=== PATIENT | female | born 1950 | race African-American/Black ===

== ENCOUNTER 2018-09-01 13:28 | Inpatient (IN) ==
[2018-09-01] MEDS ORDERED: NS 1,000 ML IV ONE (13:47)
[2018-09-01] MEDS ORDERED: NS 500 ML IV ONE (13:47)
[2018-09-01] MEDS ORDERED: VANCOMYCIN 1 GM/NS 1 GM/250 ML IVPB IV ONE (13:47)
[2018-09-01] MEDS ORDERED: MAXIPIME 2 GM in NS 100 ML IV ONE (13:47)
--- NOTE | 2018-09-01 14:08 | PROVIDER DOCUMENTATION ---
This chart was entered by Siri Osei Scribe, acting as scribe for Cesario Appiah MD. HPI-General Adult - General Chief Complaint: B/P Problems Stated Complaint: HYPOTENSION Time Seen by Provider: 09/01/18 13:35 Source: patient Allergies/Adverse Reactions: Patient Allergies Allergy/AdvReac Type Severity Reaction Status Date / Time atorvastatin calcium * Allergy Unknown Unknown Verified 07/07/18 15:13 [From Lipitor] iodine Allergy Unknown Unknown Verified 07/07/18 15:13 meloxicam [From Mobic] Allergy Unknown Unknown Verified 07/07/18 15:13 Penicillins Allergy Unknown Unknown Verified 07/07/18 15:13 rosuvastatin calcium * Allergy Unknown Unknown Verified 07/07/18 15:13 [From Crestor] Iodinated Contrast- Oral and Allergy Unknown Verified 07/07/18 15:13 IV Dye [IV Dye] Home Medications: Home Medication List Medication Instructions Recorded Confirmed Last Taken Type Folic Acid 1 mg PO HS 04/04/17 09/02/18 07/06/18 History Lactobacillus Rhamnosus GG 1 each PO BID capsule 08/22/17 07/07/18 07/06/18 Rx [Culturelle] Apixaban [Eliquis] 2.5 mg PO BID tablet 03/21/18 09/02/18 07/06/18 Rx Albuterol 2.5MG/Ipratrop 0.5MG 3 ml INH [id number] neb 05/23/18 09/02/18 07/06/18 Rx [Duoneb (A & A)] Amiodarone [Cordarone] 200 mg PO BID tablet 05/23/18 09/02/18 07/06/18 Rx Cilostazol [Pletal] 50 mg PO BID tablet 05/23/18 09/02/18 07/06/18 Rx Diltiazem [Cardizem] 30 mg PO BID tablet 05/23/18 09/02/18 07/06/18 Rx Docusate Sodium [Colace] 100 mg PO BID 09/02/18 09/02/18 Unknown History Hydrocodone/Acetaminophen [Elizabeth 1 ea PO Q8HR 09/02/18 09/02/18 Unknown History 7.5-325 Tablet] Magnesium Hydroxide [Milk of 30 ml PO HS 09/02/18 09/02/18 Unknown History Magnesia] Multivitamin with Minerals 20 ml PO DAILY 09/02/18 09/02/18 Unknown History [Eldertonic] Omeprazole 40 mg PO DAILY 09/02/18 09/02/18 Unknown History - History of Present Illness -Gen Adult Nature of Presenting Problems: 67 y/o female presents to the ED via EMS from [facility] with hypotension. Per EMS facility stated BP 76/43, patient refused dialysis yesterday, and family has refused Hospice care. On exam here BP is 101/58. The patient has a history of sepsis with septic shock, atrial fibrillation, B- tach, cardiac arrest, MS, and type II diabetes. Location of Pain/Injury: reports: generalized Onset/Duration: reports: unsure, gradual Timing: reports: still present Context/Activities at Onset: reports: light activity Modifying Factors: worse with: movement, palpation Review of Systems - Adult - REVIEW OF SYSTEMS - ADULT ROS:: limited per condition Constitutional: reports: no symptoms reported Eyes: reports: no symptoms reported Ears, Nose, Mouth & Throat: reports: no symptoms reported Cardiovascular: reports: other (hypotension). denies: edema, syncope Respiratory: denies: cough, hemoptysis, wheezing Gastrointestinal: denies: diarrhea, rectal bleeding, vomiting Genitourinary: reports: no symptoms reported Musculoskeletal: reports: no symptoms reported Integumentary: reports: no symptoms reported Neurological: reports: no symptoms reported Psychiatric: reports: no symptoms reported Endocrine: reports: no symptoms reported Hematologic/Lymphatic: reports: no symptoms reported Allergic/Immunologic: reports: no symptoms reported All Other Systems: Reviewed and Negative Past History - Adult - PAST MEDICAL HISTORY-ADULT Review of Records: reports: Old Records Reviewed, Nursing Assessment Review, Medications Reviewed Major Childhood Illnesses: reports: denies history Cardiovascular: reports: A-Fib, CHF, HTN, hyperlipidemia, [place] Respiratory: reports: denies history, COPD, sleep apnea Gastrointestinal: reports: denies history, cancer (colon), GERD Obstetrical/Gynecological: reports: denies history Genitourinary: reports: dialysis, kidney disease (renal failure) Musculoskeletal: reports: denies history, arthritis (osteo) Neurological: reports: denies history, CVA, Multiple Sclerosis Psychiatric: reports: depression Endocrine/Immune: reports: denies history, Diabetes, Sickle Cell disease (trait) , thyroid disorder Other Conditions: reports: denies history - PRIOR SURGERIES/PROCEDURES Surgical/Procedure History: reports: cholecystectomy, BTL, - IMMUNIZATION STATUS Childhood Immunizations: See Nurse Assessment Flu Vaccine: See Nurse Assessment - FAMILY HISTORY Family History: reviewed, not pertinent - SOCIAL HISTORY Smoking: non-smoker Substance Use: none/never Living Situation: [facility] Physical Exam-General - PHYSICAL EXAM-ADULT Initial Vital Signs Reviewed: Yes - CONSTITUTIONAL General Appearance: thin, other (cachectic, generally weak, fruity smell). negative: appears well - RESPIRATORY Respiratory: lungs clear, no accessory muscle use, decreased breath sounds. negative: rales, rhonchi - CARDIOVASCULAR Cardiovascular: regular rate, rhythm, no edema, no gallop - GASTROINTESTINAL (ABDOMEN) Abdominal Exam: soft. negative: guarding, rebound - MUSCULOSKELETAL Extremity: other (muscle wasting,) - SKIN Integumentary: decubitus (superficial left buttock, stage III-IV right buttock infected erythematous with drainage, large stageVI 4 cm. sacrum to the bone with infection present, gangrenous left heel), tenderness, warm Progress - PLAN OF CARE/RESULTS Result Diagrams: 09/01/18 14:09 09/01/18 14:09 - EKG 1 Time of EKG reading by physician:: 15:34 EKG Read and Signed by:: Cesario Appiah Rate: 90 Rhythm: NSR [place]: normal Comments: possible inferior infarct age undetermined - XRAY 1 XRAY Study: Chest ( EXAM: CHEST-1 VIEW - 09/01/2018 HISTORY: HYPOTENSION TECHNIQUE: Portable chest COMPARISON: 07/23/2017 FINDINGS: Heart size appears borderline enlarged. There is mild atelectasis or infiltrate at the left base. There is slight prominence of interstitial markings on the left. There is no pleural effusion or pneumothorax identified. Central venous catheter remains in place. IMPRESSION: Atelectasis or infiltrate at right base. Electronically signed by Cruz Gerard 09/01/2018 2:20 PM) - CONSULTS/PCP/HOSPITALIST Notification #1 *Consult/PCP/Hospitalist*: Dr. Arce,covering for Dr. Crum Time Discussed: 17:55 Consult Disposition: Admit Departure - Departure Date of Disposition Decision: 09/01/18 Time of Disposition Decision: 20:29 DIAGNOSIS: Pneumonia Qualifiers: Pneumonia type: due to unspecified organism Laterality: right Lung location: lower lobe of lung Qualified Code(s): J18.1 - Lobar pneumonia, unspecified organism Urinary tract infection Qualifiers: Urinary tract infection type: site unspecified Hematuria presence: with hematuria Qualified Code(s): N39.0 - Urinary tract infection, site not specified Leukocytosis Qualifiers: Leukocytosis type: unspecified Qualified Code(s): D72.829 - Elevated white blood cell count, unspecified Renal failure Qualifiers: Renal failure chronicity: acute on chronic Acute renal failure type: unspecified Chronic kidney disease stage: stage 4 (severe) Qualified Code(s): N17.9 - Acute kidney failure, unspecified Sepsis Qualifiers: Sepsis type: sepsis due to unspecified organism Qualified Code(s): A41.9 - Sepsis, unspecified organism Disposition: ADMITTED INPATIENT 09 Certified Medical Emergency: Emergent Condition: Serious - Critical Care Note This patient required my direct & personal management of CC.: Yes Total Time (mins): 31 Critical Care Statement: This patient required my direct personal management to treat or rule out processes, the absence of which, could potentiallly result in sudden, clinically significant life or limb threatening deterioration. Attestation - Physician/ JENNIFER Attestation Patient care was provided by Advanced Practice Provider:: No The physician spent face to face time with patient:: Yes Advanced Practice Provider documentation review:: Supervising physician onsite and consulted in the evaluation and care of this patient. The physician did have a face to face encounter with the patient. This chart was documented by the indicated scribe, (Siri Osei Scribe) and accurately reflects the services I performed and decisions made by me, Cesario Appiah MD, as attested by the provider's signature.
--- NOTE | 2018-09-01 14:22 | Diag Imaging Result Doc PS360 ---
EXAM: CHEST-1 VIEW - 09/01/2018 HISTORY: HYPOTENSION TECHNIQUE: Portable chest COMPARISON: 07/23/2017 FINDINGS: Heart size appears borderline enlarged. There is mild atelectasis or infiltrate at the left base. There is slight prominence of interstitial markings on the left. There is no pleural effusion or pneumothorax identified. Central venous catheter remains in place. IMPRESSION: Atelectasis or infiltrate at right base. Electronically signed by Cruz Gerard 09/01/2018 2:20 PM
[2018-09-01 14:31] LABS: BASO# 0.01 X1000 (0.0-0.2); EOS% 0.3 % (0.0-10.0); HEMATOCRIT 30.8 % (37.0-47.0); HEMOGLOBIN 10.6 g/dL (12.0-16.0); IMM GRAN# 0.12 X1000 (0.0-0.04); IMM GRAN% 0.4 % (0.0-0.5); LYMPH# 2.85 X1000 (1.2-3.4); MCH 25.5 PG (27-31); MCHC 34.4 g/dL (33-37); MONO# 1.87 X1000 (0.11-0.59); MONO% 5.9 % (1.7-9.3); MPV 9.6 FL (7.4-10.4); NEUT% 84.4 % (42.2-75.2); PLT 644 X1000 (130-400); RBC 4.16 XMIL (4.2-5.4); RDW 19.1 % (11.5-14.5); WBC 31.75 X1000 (4.8-10.8)
[2018-09-01 14:37] LABS: INR 1.7; PROTIME 21.2 Seconds (11.0-16.0)
[2018-09-01 14:38] LABS: PTT 52.4 Seconds (22.3-41.8)
[2018-09-01 14:46] LABS: ALB/GLOB RATIO 0.7; ALBUMIN 2.3 g/dL (3.5-5.0); CREATININE 3.1 mg/dL (0.5-0.9); TOTAL BILIRUBIN 0.54 mg/dL (0.20-1.00); TOTAL PROTEIN 5.7 g/dL (6.3-8.3)
[2018-09-01 14:55] LABS: URINE SOURCE CATH
[2018-09-01 15:14] LABS: ANISOCYTOSIS OCCASIONAL; EOS 1 % (1-10); HYPOCHROM 1+; LYMPHS 14 % (21-51); MICROCYTOSIS 1+; MONO 5 % (1-9); NRBC 2 % (0-0); POIKILOCYTOSIS 3+; SEGS 79 % (42-75); TARGET CELLS 3+
[2018-09-01 15:15] LABS: BILIRUBIN URINE NEGATIVE (NEGATIVE); BLOOD URINE MODERATE (NEGATIVE); COLOR ORANGE; GLUCOSE URINE NEGATIVE (NEGATIVE); KETONE URINE NEGATIVE (NEGATIVE); LEUKOCYTES URINE LARGE (NEGATIVE); NITRITE URINE NEGATIVE (NEGATIVE); PH URINE 5.5; PROTEIN URINE 300 mg/dL (NEGATIVE); SP GRAVITY URINE 1.019; TURBIDITY URINE TURBID (CLEAR); UR EPITHELIAL CELLS >10 /HPF (<10); URINE BACTERIA NEGATIVE /HPF; URINE RBC TNTC /HPF (<10); URINE WBC TNTC /HPF (<10); UROBILINOGEN URINE NORMAL (NORMAL)
[2018-09-01 15:19] LABS: URINE CASTS NONE SEEN; URINE CRYSTALS NONE SEEN; URINE SMALL ROUND CELLS NONE SEEN; URINE YEAST PRESENT
[2018-09-01] MEDS ORDERED: NS 1,000 ML ONE (16:27)
[2018-09-01] MEDS ORDERED: LEVAQUIN 750 MG/D5W 750 MG/150 ML IVPB IV ONE (17:44)
[2018-09-01] MEDS ORDERED: ZOFRAN IV PRN ×2 (18:55→20:34)
--- NOTE | 2018-09-01 19:24 | HISTORY AND PHYSICAL ---
CHIEF COMPLAINT: Extreme weakness and shortness of breath. PRESENT ILLNESS: This is one of several [facility] admissions for this 67-year-old black female who presented to the emergency room with shortness of breath and weakness. Chest x-ray shows right lower lobe infiltrate suggestive of pneumonia. She has a stage III to IV sacral decubitus ulcer and decubitus ulcers of heels. White blood count was elevated at 31,000. She has endstage renal disease and receives dialysis 3 times weekly. She has been at [facility] for a couple of months. 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 She has had some recent nausea, but no vomiting and no diarrhea. Appetite has been poor. Blood pressure was a little low at 106/45. She is admitted for further evaluation and treatment. Urine and blood cultures were obtained. Urinalysis revealed ctf-[id number]-to-count WBCs and RBCs. She has multiple medical problems and has been bedbound due to a stroke from underlying atrial fibrillation. She developed pressure ulcers subsequently. There is no history of recent surgery. She has a Vas-Cath on the left side. ALLERGIES: Atorvastatin, iodine, meloxicam, penicillin and others. HOME MEDICATIONS: Albuterol and Atrovent q.i.d.; amiodarone 200 mg b.i.d.; Eliquis 2.5 mg b.i.d.; Pletal 50 mg b.i.d.; diltiazem 30 mg b.i.d.; folic acid 1 mg at bedtime; lactobacillus 1 b.i.d.; omeprazole 20 mg daily. SOCIAL HISTORY: She is a single lady and has several children who live in other states including [place]. There is no history of recent smoking or alcohol usage. PHYSICAL EXAMINATION: GENERAL: Debilitated black female with nasal oxygen and O2 saturation 100%. Bedridden black female with generalized weakness. VITAL SIGNS: Temperature 99.8 degrees, heart rate 93, respirations 18, blood pressure 140/60. Weight 136 pounds. SKIN: She has a large sacral decubitus ulcer, and decubitus ulcers on heels. LUNGS: There are increased upper airway sounds to auscultation of the lungs. No rales are audible. ABDOMEN: Soft with no mass, tenderness or organomegaly. HEART: Regular in rate and rhythm with no murmur or gallop. EXTREMITIES: No edema or cyanosis. RECTAL: Deferred. GENITALIA: Deferred. IMPRESSION: 1. Endstage renal disease. 2. Early sepsis. 3. Right lower lobe pneumonia. 4. Cystitis. 5. Decubitus ulcers, the worst being in the sacral area. PLAN: Intravenous levofloxacin, cefepime and vancomycin. Cultures are pending. cc: Edwardo Arce MD
[2018-09-01] MEDS ORDERED: VANCOMYCIN IV PER PHARMACY MISC SCH (20:58)
[2018-09-01] MEDS ORDERED: ULTRAM PO SCH (21:00)
[2018-09-01] MEDS ORDERED: PLETAL PO SCH (21:00)
[2018-09-01] MEDS ORDERED: ELIQUIS PO SCH (21:00)
[2018-09-01] MEDS ORDERED: FOLIC ACID PO SCH (21:00)
[2018-09-01] MEDS ORDERED: DUONEB (A & A) INH SCH (21:00)
[2018-09-01] MEDS ORDERED: CORDARONE PO SCH (21:00)
[2018-09-01] MEDS: DUONEB (A & A) INH SCH (21:00)
[2018-09-02] MEDS: FOLIC ACID PO SCH ×2 (01:38→21:07)
[2018-09-02] MEDS: DUONEB (A & A) INH SCH ×4 (04:10→20:12)
[2018-09-02] MEDS: PRILOSEC PO SCH ×2 (05:49→10:01)
[2018-09-02] MEDS: PLETAL PO SCH ×3 (05:49→21:07)
[2018-09-02] MEDS: ELIQUIS PO SCH ×3 (05:50→21:07)
[2018-09-02] MEDS: ULTRAM PO SCH ×3 (05:50→18:23)
[2018-09-02] MEDS: MAXIPIME 1 GM in NS 50 ML IV SCH ×2 (05:50→16:15)
[2018-09-02] MEDS: CORDARONE PO SCH ×3 (05:50→21:07)
[2018-09-02] MEDS ORDERED: PRILOSEC PO SCH (07:00)
[2018-09-02] MEDS ORDERED: VANCOMYCIN 1 GM/NS 1 GM/250 ML IVPB IV SCH (09:30)
[2018-09-02] MEDS ORDERED: DIFLUCAN 100 MG/NS 100 MG/50 ML IVPB IV SCH (14:00)
[2018-09-02] MEDS ORDERED: LEVAQUIN 250 MG/D5W 250 MG/50 ML IVPB IV SCH (18:30)
[2018-09-03] MEDS: ULTRAM PO SCH ×2 (00:07→15:14)
[2018-09-03] MEDS: NORCO-7.5 PO PRN (02:02)
[2018-09-03] MEDS: DUONEB (A & A) INH SCH ×4 (03:50→20:29)
[2018-09-03] MEDS: MAXIPIME 1 GM in NS 50 ML IV SCH (04:24)
[2018-09-03] MEDS ORDERED: TIGHT: 0.2 ML/HR FOR DIALYSIS MISC PRN (06:23)
[2018-09-03] MEDS ORDERED: HEPARIN IV PRN (06:23)
[2018-09-03] MEDS ORDERED: NS 2,000 ML MISC PRN (06:23)
[2018-09-03] MEDS: PRILOSEC PO SCH (06:58)
--- NOTE | 2018-09-03 06:59 | PROGRESS NOTE ---
DATE: 09/03/2018 SUBJECTIVE: Ms. Mcfarlane is doing fair. The patient is not giving a good history. No high-grade fever or chills. The patient had low blood pressure at the assisted. The patient had an unstageable decubitus on the sacral area. She had end-stage renal disease; at times, refusing dialysis, losing weight. Oral intake is poor. We are encouraging oral feeding. Urine grew piyush or yeast. The patient does have significant pain. PHYSICAL EXAMINATION: Vital Signs: Noted. Neck: Supple. No JVD. Lungs: Decreased air entry at both the bases. CVS: S1 and S2 heard. A 2/6 systolic murmur at the apex. Abdomen: Soft. No distention. Bowel sounds present. PNEUMATIC TESTER: Alert, awake, and uncooperative for a detailed examination. LABORATORY STUDIES: Admission labs revealed leukocytosis and anemia of chronic disease. PT/INR 1.7, PTT was 52.4. BUN 31, creatinine 3.1. Urine did reveal too numerous to count WBCs and large leukocytes, and there was yeast present. Culture also grew yeast. ASSESSMENT AND PLAN: The patient is admitted with low blood pressure. The patient had a stage IV decubitus on the sacrum. We requested wound care nurse to evaluate the patient. I am going to order air mattress, change positions frequently. We will encourage Ensure and nutritional supplement. The patient is on broad-spectrum antibiotics. I am going to get an infectious disease consult and a surgical consult, a nephrology consult for dialysis and management of renal failure. Overall prognosis is poor. I talked to the son and they want to consider full treatment. Her other problems include paroxysmal atrial fibrillation, atelectasis, pneumonia, and peripheral vascular disease. The patient also has a pressure sore on her feet and a history of multiple sclerosis. cc: Ravin Torres MD
[2018-09-03] MEDS ORDERED: MAXIPIME 1 GM in NS 50 ML IV SCH (07:45)
--- NOTE | 2018-09-03 08:42 | INFECTIOUS DISEASE CONSULT REP ---
DATE: 09/03/2018 CONCLUSION: The patient is admitted to the hospital with a buttock large infected decubitus ulcer. She also has pressure wounds on both heels. She also has funguria. Finally, she on chest x-ray has a right lower lobe pneumonia and/or atelectasis. The patient is unable to provide a history and no family member is present. The information I obtained was from information in the computer. RECOMMENDATIONS: I agree with treating the patient with cefepime. I have changed the dose to 1 g IV after each dialysis. I have discontinued fluconazole because I think the patient's funguria is asymptomatic and therefore does not require treatment. The patient has a gram- negative christian bacteremia. This could have originated from the patient's large buttock decubitus ulcer with a partial eschar. PRESENT ILLNESS: The patient is unable provide a history. No family member is present. The patient lives in a long term and was sent over to the hospital because of weakness and shortness of breath. She sent to [facility] because of extreme weakness and shortness of breath. Her laboratory studies show a CBC with a white count of 31,750, hemoglobin 10.6, and platelet count 644,000. Creatinine is 3.1. GFR is 18. Both blood cultures are growing gram-negative rods. Urine is growing yeast. Chest x-ray has right lower lobe pneumonia/atelectasis. The patient's buttock Gram stain shows no bacteria. A culture from the buttock decubitus ulcer is pending. The patient's urinalysis shows white cells but no bacteria. Blood cultures are growing gram-negative christian and urine is growing yeast. The patient's liver function tests were normal except for an alkaline phosphatase of 160. Creatinine is 3.1. GFR is 18. PAST MEDICAL HISTORY: The patient has a history of end-stage renal disease. She is on hemodialysis. She had a stroke with resulting left hemiparesis. She also has deconditioning, dysphagia, a hiatal hernia, gastritis, multiple pressure ulcers including both heels and on the buttock, and atrial fibrillation, although when I listened to the patient just now, the heart rate appeared regular. The patient also has peripheral vascular disease and electrolyte abnormalities. The patient also has coronary artery disease, pulmonary hypertension, multiple sclerosis, diabetes mellitus, recurrent pneumonia, and urine cultures. The patient also has peripheral neuropathy and a history of colon cancer. She also has hypertension. PAST SURGICAL HISTORY: She has had placement of dialysis catheters and also had them removed. The patient has a tubal ligation and section. PHYSICAL EXAMINATION: Vital Signs: The temperature is 98.6, pulse 98, respirations 16, blood pressure 104/54. General: This is a chronically ill-appearing, elderly female. She is in no acute distress. Head, Eyes, Ears, Nose, and Throat: No drainage noted from the nose or ears. She did not track with her eyes. Neck: There was no pain when she moved her neck. Lungs: Clear to auscultation. Cardiovascular: Heart rate is regular. Abdomen: Soft and nontender. Thorax: The patient has a dialysis catheter in the left chest. The site is not swollen or draining. Integument: The patient, in the buttock and sacral area, has a large infected ulcer that has a partial eschar covering the opening. I did not palpate bone directly. Both of the patient's heels had dark areas but no actual ulcer or drainage. Neurologic: The patient did not track with her eyes. She did not follow requests to move her extremities. There was no tremor. SOCIAL HISTORY: The patient lives in a long term. The patient is single. She does have children who are in other states. She has no history of cigarette smoking or alcohol abuse. ALLERGIES: She has drug allergies to atorvastatin, iodine, meloxicam, and penicillin. HOME MEDICATIONS: The home medications include albuterol and Atrovent, amiodarone, Eliquis, Pletal, diltiazem, folic acid, lactobacillus, and omeprazole. Thank you for the consult. cc: MD Ravin Lin MD MTDD
[2018-09-03 10:58] LABS: BASO# 0.02 X1000 (0.0-0.2); BASO% 0.1 % (0.0-0.8); EOS# 0.01 X1000 (0.0-0.7); HEMOGLOBIN 9.3 g/dL (12.0-16.0); IMM GRAN# 0.23 X1000 (0.0-0.04); IMM GRAN% 0.6 % (0.0-0.5); LYMPH# 0.81 X1000 (1.2-3.4); LYMPH% 2.2 % (20.5-51.1); MCH 25.7 PG (27-31); MCHC 35.8 g/dL (33-37); MCV 71.8 FL (81-99); MONO% 4.3 % (1.7-9.3); MPV 9.4 FL (7.4-10.4); NEUT# 34.79 X1000 (1.4-6.5); NEUT% 92.8 % (42.2-75.2); PLT 552 X1000 (130-400); RBC 3.62 XMIL (4.2-5.4); RDW 19.2 % (11.5-14.5); WBC 37.46 X1000 (4.8-10.8)
[2018-09-03 11:19] LABS: ALB/GLOB RATIO 0.6; ALBUMIN 2.1 g/dL (3.5-5.0); CALCIUM 7.9 mg/dL (8.8-10.2); MAGNESIUM 1.6 mg/dL (1.5-2.7); POTASSIUM 3.2 mmol/L (3.5-5.1); TOTAL BILIRUBIN 0.49 mg/dL (0.20-1.00); TOTAL PROTEIN 5.6 g/dL (6.3-8.3)
--- NOTE | 2018-09-03 11:24 | NEPHROLOGY CONSULTATION ---
DATE: 09/03/2018 REASON FOR ADMISSION: Severe weakness with shortness of breath and pain. REASON FOR CONSULT: End-stage renal disease, for assistance with medical management. CONSULTING PHYSICIAN: Dr. Ravin Torres. HISTORY OF PRESENT ILLNESS: Ms. Mcfarlane is a 67-year-old female who is known to our outpatient services for hemodialysis on Monday, Monday, Monday at the [facility]. The patient has had multiple admissions in the last year to both [facility] and [facility]. At this time, she is a long-term resident at [facility]. She was admitted earlier July with diagnosis of end-stage renal disease, chronic anemia, CVA on the right with left hemiparesis, deconditioning. She also had Pseudomonas infection on wound ulcers. It is reported on her admission sheet that she has had reported recent incidence of nausea and vomiting, poor appetite, low blood pressure. Due to these findings, she had blood cultures drawn. These currently indicate gram negative rods with positive yeast in her urine. Her chest x-ray on admission showed atelectasis or infiltrates to the right lower lobe with Dr. Mccartney consulted. The patient is nonverbal today. She does not give a good past medical history. PAST MEDICAL HISTORY: In our previous notes and information in our office indicates that in she has already had end-stage renal disease. She is currently on hemodialysis on Monday, Monday, Monday, anemia of chronic disease, pneumonia, insulin-dependent diabetes mellitus type 1, coronary artery disease, pulmonary hypertension, CVA, peripheral vascular disease, osteodystrophy of chronic disease. PAST SURGICAL HISTORY: Previous dialysis tunneled catheters, port placed in June 2017. SOCIAL HISTORY: She is at [facility]. Denies tobacco, alcohol or illicit drug use. FAMILY HISTORY: Noncontributory to end-stage renal disease. ALLERGIES: Currently listed as atorvastatin, iodine, meloxicam, penicillins. HOME MEDICATIONS: Have yet to be reconciled. REVIEW OF SYSTEMS: Unable to obtain per patient. Best obtained from previous charts in our office and previous admissions. VITAL SIGNS: Her most recent vital signs: Temperature 98.6 degrees, blood pressure 104/54, heart rate 98, respirations are 20. She is on 2 L nasal cannula. Last recorded saturation is 97%. She has had 200 in, she has only had 60 mL out. LABORATORY DATA: Last obtained, her sodium is 139, potassium 4, chloride 102, CO2 21, BUN 31, creatinine 3.1, glucose 92. White count 31.75, hemoglobin 10.6, hematocrit 30.8 with a platelet count of 644,000. The patient's last potassium was 4. She has labs ordered for this a.m. These have not resulted. PHYSICAL EXAMINATION: General: This is a 67-year-old female. She appears older than her stated age. She remains nonverbal though she is awake. Skin: Warm and dry. Her posterior back and buttocks have not been inspected. HEENT: Normocephalic, atraumatic. Conjunctiva is pale. She has SHAUN. Mucous membranes are dry. Neck: Supple. Trachea midline. She has no evidence of JVD. Cardiovascular: She has regular rate and rhythm. Lungs: She has occasional scattered rhonchi with deep inspiratory effort. She remains on O2. Abdomen: Soft, nontender. Positive bowel sounds noted. Genitourinary: Not inspected. Minimal void with dialysis assist. Extremities: With no edema. Neurological: As mentioned above. ASSESSMENT AND PLAN: 1. Chronic kidney disease stage 5D. The patient is due for her routine dialysis treatment today. We will place her on a 2 K bath. She is to dialyze for 3.5 hours. We will attempt to challenge the patient's outpatient dry weight. 2. Electrolytes and acid-base balance. These are acceptable with correction on dialysis. 3. Anemia. This is acceptable. 4. Leukocytosis. The patient has a white count of 31.75. Dr. Mccartney has been consulted. She does have positive blood cultures. She had been dosed with vancomycin on her initial admission. I would like to thank you for allowing us to follow with this patient. Dictated by SARAH Dick for Gagan Conde MD Face to face encounter, data reviewed, discussed with Keshav Metzger on 09/03/18. I agree with the above assessment and plan of care. cc: SARAH Dick MD Bharat K. Vakharia, MD MTDD
[2018-09-03 11:47] LABS: LARGE PLATELETS OCCASIONAL; LYMPHS 1 % (21-51); MONO 4 % (1-9); SEGS 95 % (42-75)
[2018-09-03 11:48] LABS: ANISOCYTOSIS 1+; MICROCYTOSIS 1+; TARGET CELLS 3+
--- NOTE | 2018-09-03 12:28 | GENERAL SURGERY CONSULTATION ---
DATE: 09/03/2018 REQUESTING PHYSICIAN: Dr. Torres. REASON FOR CONSULTATION: Sacral wound. HISTORY OF PRESENT ILLNESS: A 67-year-old female, well known to my group, who has had multiple medical comorbidities, presenting now with weakness and shortness of breath. She has baseline end- stage renal disease. She had been at [facility]. She has developed a sacral pressure ulcer. I was asked to weigh an opinion. The patient is not very responsive, was getting dialysis when we examined her. PAST MEDICAL HISTORY: Includes 1. End-stage renal disease. 2. Anemia of chronic disease. 3. History of pneumonia. 4. Insulin-dependent diabetes mellitus type 1. 5. Coronary artery disease. 6. Hypertension. 7. Pulmonary hypertension. 8. CVA. 9. Peripheral vascular disease. PAST SURGICAL HISTORY: Multiple previous tunneled catheter placement. SOCIAL HISTORY: Lives at [facility]. FAMILY HISTORY: Noncontributory. ALLERGIES: Reviewed. HOME MEDICATIONS: Reviewed. REVIEW OF SYSTEMS: Difficult to obtain secondary to the patient's mental status. PHYSICAL EXAMINATION: Vital Signs: The patient is currently afebrile. Her vital signs are stable. General: No acute distress. female looks older than stated age. HEENT: Normocephalic, atraumatic. Pupils equal, round, reactive to light. Mucous membranes moist. Oropharynx benign. Neck: Supple. Trachea midline. Cardiovascular: Regular rate and rhythm. Lungs: Grossly clear. Chest wall with catheter in place, currently undergoing dialysis. Abdomen: Soft, nontender, nondistended. Sacral wound, significant large pressure ulcer with some necrotic tissue and slough. Extremities: No edema. Neurologic: The patient is nonverbal at this time. Skin: Sacral wound as noted above. LABORATORY DATA: White blood cell count 37, platelet count 552,000, hematocrit 26. ASSESSMENT/PLAN: A 67-year-old female with multiple medical comorbidities now with a sacral pressure ulcer. 1. Multiple medical comorbidities, currently being managed by the hospitalist and Dr. Torres. 2. Sacral pressure ulcer. At this time, continue with offloading. We will change wound care instructions to have Jacob and Santyl. We will try to re-examine there in a week and maybe try to do some bedside debridement. I am unsure if the patient would tolerate any significant debridement in the operating room. We will continue to follow. cc: MD Ravin Canada MD
[2018-09-03] MEDS: CORDARONE PO SCH (15:10)
[2018-09-03] MEDS: ELIQUIS PO SCH (15:12)
[2018-09-03 15:13] LABS: URINE SOURCE CATH
[2018-09-03] MEDS: SANTYL OINT TOP SCH (15:13)
[2018-09-03] MEDS: PLETAL PO SCH (15:14)
[2018-09-03 15:32] LABS: BILIRUBIN URINE NEGATIVE (NEGATIVE); BLOOD URINE MODERATE (NEGATIVE); COLOR BROWN; GLUCOSE URINE NEGATIVE (NEGATIVE); KETONE URINE NEGATIVE (NEGATIVE); LEUKOCYTES URINE LARGE (NEGATIVE); NITRITE URINE NEGATIVE (NEGATIVE); PROTEIN URINE 200 mg/dL (NEGATIVE); SP GRAVITY URINE 1.019; TURBIDITY URINE TURBID (CLEAR); UR EPITHELIAL CELLS >10 /HPF (<10); URINE BACTERIA NEGATIVE /HPF; URINE RBC TNTC /HPF (<10); URINE WBC TNTC /HPF (<10); UROBILINOGEN URINE NORMAL (NORMAL)
[2018-09-03 15:44] LABS: URINE CASTS NONE SEEN; URINE CRYSTALS NONE SEEN; URINE SMALL ROUND CELLS TRANS PRESENT; URINE YEAST PRESENT
[2018-09-03] MEDS ORDERED: VANCOMYCIN 1 GM/NS 1 GM/250 ML IVPB IV ONE (17:00)
[2018-09-03] MEDS ORDERED: D50W SYRINGE IV ONE ×2 (17:21→18:38)
[2018-09-03] MEDS: CLINIMIX E 4.25%-5% SOLUTION 1,000 ML IV SCH (18:44)
--- NOTE | 2018-09-03 18:52 | PROGRESS NOTE ---
DATE: 09/03/2018 SUBJECTIVE: Ms. Mcfarlane is doing fair. The patient had tachycardia and low-grade fever. Her blood cultures were positive for gram-negative rods. Also, her wound culture shows the patient is on IV antibiotics. I appreciate ID's help. Also, Surgical and Nephrology help managing patient. Her blood sugar at times staying low. I am going to start the patient on Clinimix for nutritional support. OBJECTIVE: Vital Signs: As noted. Neck: Supple. No JVD. Lungs: Decreased air entry at both bases. CVS: S1 and S2 heard. A 2-3/6 systolic murmur at the apex. Abdomen: Soft, globular. Bowel sounds present. HAND PLUG SHAPER: Alert and awake answering questions fair. PLAN: Plan is to watch her for hypoglycemia. Clinimix for nutritional support. Continue IV antibiotics. Dialysis. cc: Ravin Torres MD
[2018-09-04] MEDS: CORDARONE PO SCH ×3 (03:04→22:30)
[2018-09-04] MEDS: ULTRAM PO SCH ×3 (03:04→20:30)
[2018-09-04] MEDS: ELIQUIS PO SCH ×3 (03:05→20:30)
[2018-09-04] MEDS: PLETAL PO SCH ×3 (03:06→20:30)
[2018-09-04] MEDS: FOLIC ACID PO SCH ×2 (03:06→20:30)
[2018-09-04] MEDS: DUONEB (A & A) INH SCH ×4 (03:50→20:22)
--- NOTE | 2018-09-04 07:26 | PROGRESS NOTE ---
DATE: 09/04/2018 SUBJECTIVE: Ms. Mcfarlane is more alert and awake today answering question fair. Denied any high- grade fever or chills. Her vital signs are noted. Blood pressure is satisfactory. Oral intake is poor. No nausea or vomiting. OBJECTIVE: Vital Signs: As noted. Neck: Supple. No JVD. Lungs: Decreased air entry at both bases. CVS: S1 and S2 heard. A 2-3/6 systolic murmur at the apex. Abdomen: Soft. Mild epigastric tenderness. No guarding or rigidity. Extremities: No cyanosis or clubbing. No acute DVT. COOKING TEACHER: Alert, awake and cooperative for detailed exam. CONSIDERATION: The patient does have decubitus on her foot and also on the sacrum. Surgical evaluation noted. Also, I appreciate ID and Nephrology's help. I started patient on Clinimix for nutritional support. The patient is on IV antibiotics. Consideration for sepsis and decubitus ulcer. End-stage renal disease. Epigastric pain. I am going to get abdominal x-ray. Paroxysmal atrial fibrillation. Overall prognosis is poor. Discussed with surgeon and ID specialist. We will continue current treatment. Close observation. cc: Ravin Torres MD
[2018-09-04 08:13] LABS: ALBUMIN 1.8 g/dL (3.5-5.0); CREATININE 1.5 mg/dL (0.5-0.9); PHOSPHORUS 2.2 mg/dL (2.7-4.5); POTASSIUM 3.3 mmol/L (3.5-5.1)
--- NOTE | 2018-09-04 10:09 | Diag Imaging Result Doc PS360 ---
EXAM: ABDOMEN FLAT/UPRIGHT HISTORY: pain TECHNIQUE: Flat and upright, two views COMPARISON: 07/17/2018 FINDINGS: No free air beneath the diaphragm. There is stool throughout the colon with air in the sigmoid colon. No organomegaly. The gallbladder has been removed. IMPRESSION: Constipation Electronically signed by Yosvany Stock 09/04/2018 10:07 AM
[2018-09-04] MEDS: PROTONIX IV SCH (11:35)
[2018-09-04] MEDS: SODIUM CHLORIDE 0.9% INJ SCH (11:35)
--- NOTE | 2018-09-04 12:04 | NEPHROLOGY PROGRESS NOTE ---
DATE: 09/04/2018 TIME SEEN: 0640. SUBJECTIVE: Ms. Mcfarlane is resting quietly in bed. She opens her eyes to verbal stimuli. She remains nonverbal, though she shakes her head yes and no. OBJECTIVE: Vital Signs: Her most recent vital signs are temperature 97 degrees, blood pressure 117/55, heart rate 96, respirations 16. She is on 2 L nasal cannula. Last recorded saturation was 95%. She has had 250 in. She has had 1122 out with 922 removed off on dialysis yesterday. Labs: Sodium is 143, potassium 3.3, chloride is 107, CO2 25, BUN 14, creatinine 1.5, glucose 144, her anion gap is 11, her calcium is 8, her phosphorus 2.2, albumin is 1.8. Previous hemoglobin was 9.3 on the . Her blood cultures have shown Providencia stuartii E. coli. Physical Examination: General: This is a 67-year-old, female resting quietly in bed. She appears chronically ill. No acute distress. Skin is warm and dry. HEENT: Normocephalic, atraumatic. Conjunctivae are pale. She has SHAUN. Mucous membranes are dry. Neck: Supple. Trachea midline. No JVD. Cardiovascular: She is regular rate and rhythm. She does have a systolic murmur this a.m. Lungs: Clear to auscultation anteriorly. Equal excursion, on O2. Abdomen: Soft, nontender. Positive bowel sounds. Genitourinary: Not inspected. Minimal void with dialysis assist. Extremities: Have trace edema. No clubbing or cyanosis. Integumentary: The patient's backside and coccyx have not been inspected. This is being cared for by the wound nurse. Neurological: She is as mentioned above. ASSESSMENT AND PLAN: 1. Chronic kidney disease stage 5D. The patient is due for her routine dialysis treatment in the morning. No indications for intervention today. 2. Electrolytes and acid-base balance, with correction on dialysis. 3. Anemia. This remains low but stable. 4. Early sepsis with a decubitus to her coccyx and positive blood cultures. This is being followed by Dr. Mccartney. 5. Malnutrition. Albumin remains at 1.8. She is currently on Clinimix. Due to the need for protein and nutrition, we will go ahead and stop the Clinimix and plan for Intra-dialysis parenteral nutrition to be given while on dialysis to increase her protein intake and calories. I would like to thank you for allowing us to follow with this patient. Dictated by SARAH Dick for Gagna Conde MD Face to face encounter, data reviewed, discussed with Keshav Metzger on 09/04/18. I agree with the above assessment and plan of care. cc: SARAH Dick MD Bharat K. Vakharia, MD [facility] [place] DIVISIONArabella
[2018-09-04] MEDS: SANTYL OINT TOP SCH (15:00)
[2018-09-04] MEDS ORDERED: PRIMAXIN 1,000 MG in NS 250 ML IV ONE (16:36)
--- NOTE | 2018-09-04 18:11 | INFECTIOUS DISEASE PROGRESS NO ---
DATE: 09/04/2018 PRESENT ILLNESS: Ms. Mcfarlane has a large, infected decubitus ulcer to her buttock, which has grown a Providencia stuartii and an ESBL-producing Escherichia coli. There is also an associated Providencia bacteremia. There are pressure wounds to her heels bilaterally as well as possible right lower lobe pneumonia and/or atelectasis. MEDICATIONS: She has been receiving IV vancomycin and cefepime after hemodialysis. PHYSICAL EXAMINATION: Vital Signs: Temperature is 99.7, pulse rate 102, respiratory rate 22, blood pressure 122/62, O2 saturation is 100%. General: This is a chronically ill-appearing elderly female. She is lying in the bed currently, in no acute distress. HEENT: Atraumatic, normocephalic. Oral mucous membranes are not visualized at this time. Conjunctivae are pale. Cardiovascular: Heart rate is regular. There is a harsh murmur and gallop noted. Respiratory: Lung sounds are clear in the upper lobes. Diminished in the bases. Chest: There is a dialysis catheter noted to the left chest. Site is without edema, erythema, or drainage. Abdomen: Soft, round and tender to palpation. Bowel sounds are active. Integumentary: There are areas of deep tissue injury to her bilateral heels with eschar to the left heel, as well as multiple scabby abrasions to her feet. The sacrum decubitus is deep with eschar noted, as well as undermining. It is a stage IV, with bone palpable in the base. She also has right ischial wounds x2 and a left ischial wound. Neurologic: She is awake, alert, and will follow commands at times, mostly nonverbal with an occasional yes or no answer. LABORATORY AND X-RAY: Today, her creatinine is 1.5, GFR is 42. Her buttock wound has grown Providencia stuartii and an ESBL producing Escherichia coli. Her blood cultures grew Providencia stuartii. Abdominal x-ray today shows constipation. Otherwise, no other imaging reports. ASSESSMENT AND PLAN: Ms. Mcfarlane has been receiving vancomycin and cefepime for treatment of her wounds. At this point, we have resulted cultures, which show an ESBL producing Escherichia coli. We will go ahead and discontinue vancomycin and cefepime and order her one dose of Primaxin 1 g IV today, and then we will have her to continue Primaxin 1 g IV after each dialysis treatment. She does have an allergy to penicillins, but has been taking cefepime previously without any difficulty. We will go ahead and have the nurse to watch her with the first dose. These plans have been discussed with and recommended by Dr. Mccartney. COMORBIDITIES: For Ms. Mcfarlane include that she is elderly and malnourished, with end-stage renal disease on hemodialysis, peripheral vascular disease, diabetes mellitus, and history of atrial fibrillation. Dictated by SARAH Jeffery for Rojas Mccartney MD This chart was documented by, SARAH Jeffery and accurately reflects the services performed, treatment plan and medical decisions as attested by the providers signature Rojas Mccartney MD. cc: MD Ravin Lin MD MTDD
[2018-09-04] MEDS: CLINIMIX E 4.25%-5% SOLUTION 1,000 ML IV SCH (22:30)
[2018-09-05] MEDS: DUONEB (A & A) INH SCH ×4 (03:50→20:05)
[2018-09-05] MEDS ORDERED: NS 2,000 ML MISC PRN (06:07)
[2018-09-05] MEDS ORDERED: HEPARIN IV PRN (06:07)
[2018-09-05] MEDS ORDERED: TIGHT: 0.2 ML/HR FOR DIALYSIS MISC PRN (06:07)
[2018-09-05] MEDS ORDERED: LACTULOSE PO ONE (06:28)
[2018-09-05] MEDS ORDERED: DULCOLAX PR ONE (06:34)
--- NOTE | 2018-09-05 07:02 | PROGRESS NOTE ---
DATE: 09/05/2018 Ms. Mcfarlane is doing some better. She seems to be answering questions better. No high-grade fever or chills. No nausea, vomiting. Abdominal x-ray did reveal significant constipation. Her blood culture and wound culture result reviewed. I appreciate Bib' help managing patient. OBJECTIVE: Vital Signs: Blood pressure 113/56, pulse is 93, respiration 18, temperature 97.7 degrees. Neck: Supple. No JVD. Lungs: Bibasilar crepitation. Heart: 2-3/6 systolic murmur at the apex. Abdomen: Soft, scaphoid. Less tender. Bowel sounds present. MANAGER HOME IMPROVEMENT: Alert, awake. Answering questions fair better than yesterday. LABORATORY DATA: Ordered for today is pending. PROBLEMS: 1. Includes gram-negative sepsis. Blood culture grew Providencia. The wound culture also grew Providencia. It also had ESBL positive E. coli. Infectious Disease specialist recommendations noted. 2. Her other problem includes paroxysmal atrial fibrillation. 3. Malnutrition. 4. History of multiple sclerosis. Abdominal x-ray did reveal constipation. We will continue current treatment. Close observation. Overall prognosis fair to guarded though patient is gradually getting some better. We will continue current treatment and close observation. The patient does have peripheral vascular disease, end-stage renal disease, on hemodialysis. Urinalysis also revealed a UTI. cc: Ravin Torres MD
[2018-09-05 07:55] LABS: BASO# 0.01 X1000 (0.0-0.2); EOS# 0.12 X1000 (0.0-0.7); EOS% 0.5 % (0.0-10.0); HEMATOCRIT 25.2 % (37.0-47.0); HEMOGLOBIN 8.7 g/dL (12.0-16.0); IMM GRAN# 0.17 X1000 (0.0-0.04); IMM GRAN% 0.8 % (0.0-0.5); LYMPH# 1.19 X1000 (1.2-3.4); LYMPH% 5.4 % (20.5-51.1); MCH 25.1 PG (27-31); MCHC 34.5 g/dL (33-37); MCV 72.6 FL (81-99); MONO# 1.58 X1000 (0.11-0.59); MONO% 7.2 % (1.7-9.3); MPV 9.6 FL (7.4-10.4); NEUT# 18.97 X1000 (1.4-6.5); NEUT% 86.1 % (42.2-75.2); PLT 540 X1000 (130-400); RBC 3.47 XMIL (4.2-5.4); RDW 18.7 % (11.5-14.5); WBC 22.04 X1000 (4.8-10.8)
[2018-09-05] MEDS: SODIUM CHLORIDE 0.9% INJ SCH (08:24)
[2018-09-05] MEDS: PROTONIX IV SCH (08:25)
[2018-09-05 08:32] LABS: BANDS 2 % (0-1); LYMPHS 6 % (21-51); MONO 8 % (1-9); NRBC 1 % (0-0); SEGS 84 % (42-75)
[2018-09-05 08:35] LABS: ANISOCYTOSIS 2+; HYPOCHROM 2+; MICROCYTOSIS 2+; POIKILOCYTOSIS 1+; TARGET CELLS 2+
--- NOTE | 2018-09-05 08:39 | NEPHROLOGY PROGRESS NOTE ---
DATE: 09/05/2018 SUBJECTIVE: She did not talk to me today. Kept her eyes closed through the exam. OBJECTIVE: Vital Signs: Blood pressure 120/54, heart rate 87, respirations 16, afebrile. General: Chronically ill, mental status as above. No distress. Skin: Warm and dry. Conjunctivae are pink. Neck: Neck veins are not distended. Heart: Regular. No gallops. Lungs: Equal. No crackles or wheezes. Abdomen: Soft, nontender. Bowel sounds present. Extremities: With no edema, clubbing or cyanosis. IMPRESSION: 1. Chronic kidney disease 5D. Today is her routine dialysis day. 2. Bacteremia. She is on appropriate antibiotics, managed by Dr. Mccartney. 3. Hypokalemia. 4K bath today. 4. Hypophosphatemia. She is not on a phosphate binder. She is receiving IV nutrition. cc: MD Ravin Pimentel MD
[2018-09-05 09:16] LABS: ALBUMIN 1.8 g/dL (3.5-5.0); CALCIUM 8.4 mg/dL (8.8-10.2); CREATININE 2.2 mg/dL (0.5-0.9); PHOSPHORUS 3.1 mg/dL (2.7-4.5); POTASSIUM 3.5 mmol/L (3.5-5.1)
[2018-09-05] MEDS: D50W 250 ML, AMINOSYN 15% 500 ML, LIPOSYN 20% 250 ML MISC SCH ×3 (10:30)
[2018-09-05] MEDS: PLETAL PO SCH ×2 (14:30→23:15)
[2018-09-05] MEDS: CORDARONE PO SCH ×2 (14:31→23:16)
[2018-09-05] MEDS: ELIQUIS PO SCH ×2 (14:31→23:17)
[2018-09-05] MEDS: ULTRAM PO SCH ×2 (14:37→23:16)
[2018-09-05] MEDS: SANTYL OINT TOP SCH (14:39)
[2018-09-05] MEDS ORDERED: PRIMAXIN 1,000 MG in NS 250 ML IV SCH (16:30)
[2018-09-05] MEDS ORDERED: PRIMAXIN 1,000 MG in NS 250 ML IV ONE (17:00)
[2018-09-05] MEDS: NORCO-7.5 PO PRN (17:13)
--- NOTE | 2018-09-05 18:02 | INFECTIOUS DISEASE PROGRESS NO ---
DATE: 09/05/2018 PRESENT ILLNESS: The patient has infected decubitus ulcers. There is a particularly larger 1 on her buttock which has grown Providencia stuartii and an extended spectrum beta lactamase producing E. coli. There also is a Providencia bacteremia. MEDICATIONS: The patient is receiving imipenem after each dialysis. PHYSICAL EXAMINATION: Vital Signs: Temperature is 98 degrees, pulse 107, respirations 18, blood pressure 120/60. Patient is 5 feet 4 inches tall, weighs 107 pounds. General: This is a cachectic-appearing, elderly female. She is in no acute distress. Head, eyes, ears, nose, throat: No drainage noted from the nose or ears. Neck: There appeared to be no pain when I moved the neck passively. Lungs: Clear to auscultation. Cardiovascular: Heart rate is regular. Abdomen: Soft and nontender. Thorax: The patient has a left upper chest tunneled dialysis catheter in place. The site is not swollen or draining. Neurologic: The patient has a decreased level of consciousness. She does not respond to verbal stimuli. There is no tremor. LAB AND X-RAY: Urine is growing yeast. CBC shows a white count of 22,040, hemoglobin 8.7, platelet count 540,000. The patient's decubitus ulcers cultures are growing Providencia and E. coli. The patient's blood culture is growing Providencia. The E. coli is an extended spectrum beta lactamase producing organism. ASSESSMENT AND PLAN: The patient has multiple infected decubitus ulcers. My plan is to continue imipenem. The patient also has yeast in her urine. This is asymptomatic and does not require antibiotic therapy. COMORBIDITIES: She is elderly. She appears malnourished. She has end-stage renal disease and is on hemodialysis. She has diabetes and peripheral vascular disease. cc: MD Ravin Lin MD
--- NOTE | 2018-09-05 19:08 | INFECTIOUS DISEASE PROGRESS NO ---
DATE: 09/05/2018 ADDENDUM TO PROGRESS NOTE: The patient's wound dressings have been removed. The patient has multiple pressure wounds on her legs and in the sacral area. The wounds on her legs have some beefy red tissue and some fatty tissue. There was no purulence coming from the wounds. The wound on her sacrum is bigger. It has some devitalized tissue covering approximately a third of the wound. There is no purulence coming from the wound, but only a very small amount of beefy red tissue is present. The patient has on both heels eschars. The eschars are black in color. cc: MD Ravin Lin MD
[2018-09-05] MEDS: FOLIC ACID PO SCH (23:17)
--- NOTE | 2018-09-06 01:14 | OPERATIVE NOTE ---
PROCEDURE DATE: 09/05/2018 PREOPERATIVE DIAGNOSES: 1. Poor peripheral venous access. 2. Pneumonia. 3. Decubitus ulcer. POSTOPERATIVE DIAGNOSES: 1. Poor peripheral venous access. 2. Pneumonia. 3. Decubitus ulcer. PROCEDURE: 1. Attempted right subclavian central venous access. 2. Placement of right femoral central venous access with ultrasound guidance. SURGEON: Nilson Izquierdo MD. ESTIMATED BLOOD LOSS: 3 mL. COMPLICATIONS: None. FINDINGS: The right femoral vein was compressible, patent without thrombus. TECHNIQUE: The patient was kept in her room on her bed in supine position. We then placed her in reverse Trendelenburg. The right chest and clavicular area was prepped and draped in usual sterile fashion. Lidocaine 1% was used to anesthetize the skin. The needle and syringe was then advanced below the right clavicle into the subclavian vein, although the wire would not pass through the needle. I accessed it 3 separate times easily, drawing back dark nonpulsatile blood, but the wire would never pass through the needle into the vein successfully, so I aborted any further attempts. Pressure was held over this area. There was no further bleeding or hematoma. I then re-prepped and draped the right groin. The femoral artery was palpated and sticking medial to the artery, I attempted to access the femoral vein, but I initially obtained an arterial stick. I recognized this and removed the needle and held pressure for several minutes. There was no signs of hematoma. I then used a sterile ultrasound probe to visualize the artery and vein, and then this time guided the needle under ultrasound-guidance into the vein. This was dark nonpulsatile blood. The wire passed through the needle easily. The track was dilated. A triple-lumen central venous catheter was passed over the wire via the Seldinger technique. The wire was removed. All ports donovan back blood easily and were flushed with saline easily. It was anchored to the skin with silk suture, and sterile dressing was applied. There were no apparent complications. cc: MD Ravin Adams MD
[2018-09-06] MEDS: DUONEB (A & A) INH SCH ×4 (03:19→21:21)
--- NOTE | 2018-09-06 06:28 | GENERAL SURGERY PROGRESS NOTE ---
DATE: 09/06/2018 My partner, Dr. Izquierdo, placed a central line early this morning or late last night, it looks like, for phlebosclerosis. Reviewed the wound to her sacrum. There is some necrotic tissue. I sharply debrided and excised with scissors and pickups. Some of this slough, approximately 20 cm2 of skin, subcutaneous tissue, and muscle. The wound itself is a stage IV and goes all the way down to what feels like the sacrum. Replaced the dressing. The patient tolerated well. We will continue local wound care. cc: MD Ravin Canada MD
[2018-09-06] MEDS: PROTONIX IV SCH (06:34)
[2018-09-06] MEDS ORDERED: LACTULOSE PO ONE (07:05)
--- NOTE | 2018-09-06 07:09 | Diag Imaging Result Doc PS360 ---
EXAM: CHEST-PORTABLE 09/05/2018 HISTORY: attempt cvl placement TECHNIQUE: AP portable at 2243 COMMENT: There is a double-lumen left subclavian central venous catheter with its tip in the right atrium. There are patchy alveolar and interstitial opacities bilaterally. This appears slightly worse than on the previous examination of 09/01/2018. Additionally, there may be atelectasis or pneumonia in the medial right lower lobe which was also present previously. IMPRESSION: Worsened pulmonary edema. Electronically signed by Jaron Xiao 09/06/2018 7:06 AM
--- NOTE | 2018-09-06 07:23 | PROGRESS NOTE ---
DATE: 09/06/2018 SUBJECTIVE: Ms. Mcfarlane is doing better. The patient is more alert and awake. Answering questions better. She denied any high-grade fever or chills. The patient claims to be hungry. We will try to feed her. Patient is getting IV Clinimix. The surgeon did a wound debridement today. Her wound is very big. We are doing local wound care. She is not a candidate for any flap surgery or graft at this time. The patient had a central line placed yesterday. OBJECTIVE: Vital Signs: Noted. Neck: Supple. Lungs: Decreased air entry at both the bases. CVS: S1 and S2 heard. Tachycardia. A 2-3/6 systolic murmur at the apex. Abdomen: Soft, scaphoid. Bowel sounds present. DIRECTOR INDUSTRIAL RELATIONS: Alert, awake. Uncooperative for detailed exam. ASSESSMENT AND PLAN: Patient had one soft bowel movement. The patient does have multiple medical problems including sepsis, large decubitus on the sacrum, peripheral arterial disease, possible pneumonia, urinary tract infection, malnutrition, peripheral arterial disease. Lab data done yesterday noted. Appreciate surgical, infectious disease, and nephrology help managing patient. We will continue current treatment and close observation. Overall prognosis is still fair to guarded. cc: Ravin Torres MD
[2018-09-06] MEDS: ELIQUIS PO SCH ×2 (08:08→22:07)
[2018-09-06] MEDS: PLETAL PO SCH ×2 (08:08→22:06)
[2018-09-06] MEDS: CORDARONE PO SCH ×2 (08:08→22:06)
[2018-09-06] MEDS: ULTRAM PO SCH ×2 (08:08→22:07)
[2018-09-06 08:09] LABS: ALBUMIN 1.7 g/dL (3.5-5.0); CALCIUM 8.3 mg/dL (8.8-10.2); CREATININE 1.4 mg/dL (0.5-0.9); PHOSPHORUS 1.7 mg/dL (2.7-4.5); POTASSIUM 3.2 mmol/L (3.5-5.1)
[2018-09-06] MEDS: SANTYL OINT TOP SCH (08:14)
[2018-09-06] MEDS: NORCO-7.5 PO PRN (16:44)
--- NOTE | 2018-09-06 17:09 | NEPHROLOGY PROGRESS NOTE ---
DATE: 09/06/2018 TIME SEEN: 0800. SUBJECTIVE: Ms. Mcfarlane is currently resting in bed. She is being fed with assistance by the nurse aid. She states that she is being taking well care of, denies any pain except for her buttock area where her decubitus is. OBJECTIVE: Her most recent vital signs: Temperature is 98.2, blood pressure 116/58, heart rate 92, respirations 16m she is on 2 L nasal cannula, last recorded saturation 92%. Intake and Output: She has had 0 recorded in. She has had 800 mL out to dialysis. LABORATORY DATA: Sodium 141, potassium 3.2, chloride 104, CO2 of 27, BUN 19, creatinine 1.4, glucose is 93, anion gap of 10, calcium 8.3, phosphorus 1.7, albumin is 1.7. Previous hemoglobin of 8.7. PHYSICAL EXAMINATION: This is a 67-year-old elderly female, she is currently resting quietly in bed. She appears older than her stated age. Her skin is warm and dry.HEENT: Normocephalic, atraumatic. Conjunctiva is pale. She has SHAUN. Mucous membranes are dry. Neck is supple. Trachea midline. No JVD. Cardiovascular: Regular rate and rhythm without murmur or gallop appreciated. Lungs are clear to auscultation anterior, equal excursion on room air. The patient is on O2. Abdomen is soft, nontender, positive bowel sounds. Genitourinary: Not inspected. Minimal void with dialysis assist. Extremities have no edema, no clubbing or cyanosis. Her left leg, she does not move. Her left arm is drawn up. Neurological: She is awake and alert. She is more responsive to current person and place. ASSESSMENT AND PLAN: 1. Chronic kidney disease, stage 5D. The patient is due for her routine dialysis treatment in the a.m. No indications for intervention today. 2. Bacteremia. This is currently being followed by renal-dosed antibiotics per Dr. Mccartney. 3. Electrolytes and acid-base balance. These are to be addressed while on dialysis. 4. Hypokalemia and hypophosphatemia. We will address this during her dialysis treatments. She is not on a phosphate binder. I would like to thank you for allowing us to follow with this patient. Dictated by SARAH Dick for Gagan Conde MD Face to face encounter, data reviewed, discussed with Keshav Metzger on 09/07/18. I agree with the above assessment and plan of care. cc: SARAH Dick MD Bharat K. Vakharia, MD [facility]
[2018-09-06] MEDS: FOLIC ACID PO SCH (22:07)
[2018-09-07] MEDS: DUONEB (A & A) INH SCH ×4 (03:48→21:00)
[2018-09-07] MEDS: NORCO-7.5 PO PRN ×3 (05:57→17:54)
[2018-09-07] MEDS: PROTONIX IV SCH (06:39)
[2018-09-07] MEDS: CLINIMIX E 4.25%-5% SOLUTION 1,000 ML IV SCH (07:13)
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
[2018-09-07 07:58] LABS: BASO# 0.02 X1000 (0.0-0.2); BASO% 0.1 % (0.0-0.8); EOS# 0.12 X1000 (0.0-0.7); EOS% 0.4 % (0.0-10.0); HEMATOCRIT 23.6 % (37.0-47.0); HEMOGLOBIN 8.1 g/dL (12.0-16.0); IMM GRAN# 0.12 X1000 (0.0-0.04); IMM GRAN% 0.4 % (0.0-0.5); LYMPH# 2.21 X1000 (1.2-3.4); LYMPH% 7.4 % (20.5-51.1); MCHC 34.3 g/dL (33-37); MCV 72.8 FL (81-99); MONO# 1.44 X1000 (0.11-0.59); MONO% 4.8 % (1.7-9.3); MPV 10.1 FL (7.4-10.4); NEUT# 26.15 X1000 (1.4-6.5); NEUT% 86.9 % (42.2-75.2); PLT 439 X1000 (130-400); RBC 3.24 XMIL (4.2-5.4); RDW 19.1 % (11.5-14.5); WBC 30.06 X1000 (4.8-10.8)
[2018-09-07 08:18] LABS: ANISOCYTOSIS 2+; BANDS 2 % (0-1); HYPOCHROM 2+; LYMPHS 2 % (21-51); MICROCYTOSIS 2+; MONO 8 % (1-9); NRBC 1 % (0-0); POIKILOCYTOSIS 1+; SEGS 88 % (42-75); TARGET CELLS 2+
[2018-09-07 08:19] LABS: SCHISTOCYTES OCCASIONAL
[2018-09-07 08:22] LABS: ALBUMIN 1.9 g/dL (3.5-5.0); CALCIUM 8.4 mg/dL (8.8-10.2); CREATININE 2.1 mg/dL (0.5-0.9); PHOSPHORUS 2.5 mg/dL (2.7-4.5); POTASSIUM 3.4 mmol/L (3.5-5.1)
[2018-09-07] MEDS: ULTRAM PO SCH ×2 (09:36→20:30)
[2018-09-07] MEDS ORDERED: TIGHT: 0.2 ML/HR FOR DIALYSIS MISC PRN (10:24)
[2018-09-07] MEDS ORDERED: HEPARIN IV PRN (10:24)
[2018-09-07] MEDS ORDERED: NS 2,000 ML MISC PRN (10:24)
[2018-09-07] MEDS: ELIQUIS PO SCH ×2 (12:38→20:30)
[2018-09-07] MEDS: SANTYL OINT TOP SCH (12:39)
[2018-09-07] MEDS: PLETAL PO SCH ×2 (12:39→20:30)
[2018-09-07] MEDS: CORDARONE PO SCH ×2 (12:44→20:30)
[2018-09-07] MEDS ORDERED: INVANZ 1 GM/NS 1 GM/50 ML IVPB IV SCH (12:45)
[2018-09-07] MEDS: HEMOCYTE PLUS CAPSULE PO SCH (12:48)
[2018-09-07] MEDS: D50W 250 ML, AMINOSYN 15% 500 ML, LIPOSYN 20% 250 ML MISC SCH ×3 (13:40)
--- NOTE | 2018-09-07 16:18 | NEPHROLOGY PROGRESS NOTE ---
DATE: 09/07/2018 SUBJECTIVE: She states she is not feeling well today because of pain in her presacral area. No changes. OBJECTIVE: Vital Signs: Blood pressure 119/63, heart rate 90, respirations 14, afebrile. General: Chronically ill, thin, alert, no distress. Skin is warm and dry. Neck veins are not visible. Heart is regular. No gallops. Lungs are equal, shallow. No crackles. Abdomen is soft, nontender. Bowel sounds present. Extremities: No edema, clubbing, or cyanosis. IMPRESSION: 1. Chronic kidney disease, 5D. She will have her routine hemodialysis today. She is still has hypophosphatemia, though improved. She will be dialyzed with a 4 K bath today, and she will receive IV PN to address her phosphorus as well as help with her nutritional status. 2. She has tramadol ordered in a scheduled fashion for management of her pain as well as p.r.n. hydrocodone. No changes. cc: MD Ravin Pimentel MD
--- NOTE | 2018-09-07 16:38 | INFECTIOUS DISEASE PROGRESS NO ---
DATE: 09/07/2018 PRESENT ILLNESS: Ms. Mcfarlane is being treated for infected decubitus ulcers which have grown Providencia stuartii and an extended spectrum, betalactamase producing Escherichia coli. She also has an associated Providencia bacteremia. MEDICATIONS: She is receiving Primaxin 1 g IV after each dialysis. Unfortunately, she missed her last dose of treatment due to lack of IV access. PHYSICAL EXAMINATION: Vital Signs: Temperature is 97.9 degrees, pulse rate 95, respiratory rate 14, blood pressure 122/68, O2 saturation is 100% on 2 L nasal cannula. General: This is a chronically ill-appearing, elderly female. She is lying in bed, currently in no acute distress. HEENT: Atraumatic, normocephalic. Oral mucous membranes are pink and moist. Conjunctivae are pale. Neck: Supple. Trachea is midline. Cardiovascular: Heart rate is regular. Respiratory: Lung sounds have scattered rhonchi bilaterally. Abdomen: Soft, round and nontender. Bowel sounds are active. Integumentary: Buttock wounds are not visualized at this time, however, there is dark colored skin and eschar noted to her heels bilaterally with scattered scabby abrasions to her feet. Neurologic: She is awake, alert, and more communicative today. We were able to have a discussion and she follows commands appropriately. However, she is disoriented to place, time, and situation. She is able to squeeze my fingers with the right upper extremity. She does have a history of left upper extremity paralysis after a previous stroke. Integumentary: There is a triple lumen central line in place to her right groin, with the site free of edema, erythema or drainage. LABORATORY AND X-RAY: Today, her white count is 30.06, hemoglobin 8.1, platelet count 439,000. Creatinine is 2.1, GFR 29. Her blood cultures grew Providencia stuartii. Her buttock wound also grew Providencia stuartii, and also grew an extended spectrum beta lactamase producing Escherichia coli. No imaging reports today. ASSESSMENT AND PLAN: Ms. Mcfarlane is being treated for infected decubitus ulcers with an associated bacteremia. Unfortunately, she did not receive her dose of Primaxin after dialysis two days ago due to lack of IV site. A triple-lumen catheter has been put in by Dr. Timbo. Today, her white count has gone up. We will change Primaxin to Ertapenem 1 gm after dialysis, and repeat blood cultures once she has had 48 hours of treatment. These plans have been discussed with and recommended by Dr. Mccartney. COMORBIDITIES: For Ms. Mcfarlane include that she is elderly with protein calorie malnutrition, end- stage renal disease with hemodialysis, diabetes mellitus, and peripheral vascular disease. Dictated by SARAH Jeffery for Rojas Mccartney MD This chart was documented by, SARAH Jeffery and accurately reflects the services performed, treatment plan and medical decisions as attested by the providers signature Rojas Mccartney MD. cc: MD Ravin Lin MD MTDD
[2018-09-07] MEDS ORDERED: PRIMAXIN 1,000 MG in NS 250 ML IV SCH (17:00)
[2018-09-07] MEDS ORDERED: INVANZ 1 GM/NS 1 GM/50 ML IVPB IV ONE (17:00)
[2018-09-07] MEDS: FOLIC ACID PO SCH (20:30)
[2018-09-08] MEDS: DUONEB (A & A) INH SCH ×4 (03:26→20:39)
[2018-09-08] MEDS: NORCO-7.5 PO PRN ×2 (05:39→17:55)
[2018-09-08] MEDS: CLINIMIX E 4.25%-5% SOLUTION 1,000 ML IV SCH (05:46)
[2018-09-08] MEDS: PROTONIX IV SCH (06:17)
[2018-09-08] MEDS: SANTYL OINT TOP SCH (07:00)
[2018-09-08 08:21] LABS: ALBUMIN 1.7 g/dL (3.5-5.0); CALCIUM 7.6 mg/dL (8.8-10.2); CREATININE 1.1 mg/dL (0.5-0.9); PHOSPHORUS 2.5 mg/dL (2.7-4.5); POTASSIUM 4.4 mmol/L (3.5-5.1)
[2018-09-08] MEDS: ULTRAM PO SCH ×2 (08:36→21:27)
[2018-09-08] MEDS: CORDARONE PO SCH ×2 (08:36→21:28)
[2018-09-08] MEDS: HEMOCYTE PLUS CAPSULE PO SCH (08:37)
[2018-09-08] MEDS: ELIQUIS PO SCH ×2 (08:37→21:27)
[2018-09-08] MEDS: PLETAL PO SCH ×2 (08:37→21:27)
[2018-09-08] MEDS ORDERED: POTASSIUM PHOSPHATE 30 MEQ in NS 250 ML IV ONE (12:22)
--- NOTE | 2018-09-08 14:22 | PROGRESS NOTE ---
DATE: 09/08/2018 The patient is well known to me in the previous admission. Basically bedridden, living in moribund state. Appreciated consults by Dr. Mccartney, Dr. Conde and Dr. Izquierdo. No history was obtained from the patient. She has infected decubitus ulcer with Providencia stuartii and ESBL producing E. coli. The patient did not receive IV imipenem. PAST MEDICAL HISTORY: Reviewed. PAST SURGICAL HISTORY: Reviewed. MEDICINES: Reviewed. ALLERGIES: Insulin, Lipitor. EXAMINATION: Vital Signs: The patient's temperature is 97 degrees, pulse 97, blood pressure 129/66. General: The patient is awake. Chest: Triple-lumen catheter was seen on the left side of the upper chest. Poor air entry. Distant heart sounds. Extremities: She is with contractures noted. Bedridden, under 8 mattresses. INVESTIGATIONS: CBC: White cell count 30, hematocrit 23.6, platelets 439,000. Sodium 135, potassium 4.4, chloride 99, BUN 21, creatinine 1.1. Glucose 193. Albumin 1.7 and phosphorus 2.5. MICROBIOLOGY: Urine cultures also showed yeast infection. Blood cultures of [place] stuartii and wound culture also E. coli. ASSESSMENT AND PLAN: 1. End-stage renal disease. 2. Sacral decubitus ulcers. 3. Sepsis from Providencia. 4. Protein calorie malnutrition, severe. 5. Peripheral arterial disease. PLAN: 1. Hemodialysis as needed. 2. For atrial fibrillation on Cordarone and Eliquis b.i.d., on Pletal. The patient is receiving IV Clinimix and continue IV antibiotics with imipenem after dialysis. 3. Hypophosphatemia. K-Phos. 4. Living will, full code. Continue present assist. Level of documentation 35 minutes. cc: MD Ravin Das MD
[2018-09-08] MEDS: FOLIC ACID PO SCH (21:28)
[2018-09-09] MEDS: TYLENOL PO PRN ×2 (00:30→06:50)
[2018-09-09] MEDS: DUONEB (A & A) INH SCH ×4 (03:08→20:10)
[2018-09-09] MEDS: NORCO-7.5 PO PRN (06:50)
[2018-09-09] MEDS: CLINIMIX E 4.25%-5% SOLUTION 1,000 ML IV SCH (06:50)
[2018-09-09] MEDS: SANTYL OINT TOP SCH (06:51)
[2018-09-09] MEDS: HEMOCYTE PLUS CAPSULE PO SCH (08:15)
[2018-09-09] MEDS: ELIQUIS PO SCH ×2 (08:15→21:53)
[2018-09-09] MEDS: PLETAL PO SCH ×2 (08:15→21:53)
[2018-09-09] MEDS: CORDARONE PO SCH ×2 (08:15→21:53)
[2018-09-09] MEDS: ULTRAM PO SCH ×2 (08:15→21:53)
[2018-09-09] MEDS: SODIUM CHLORIDE 0.9% INJ SCH (08:16)
[2018-09-09] MEDS: PROTONIX IV SCH (08:16)
--- NOTE | 2018-09-09 14:11 | PROGRESS NOTE ---
DATE: 09/09/2018 SUBJECTIVE: Last night, patient was running fever. Blood cultures. Tylenol was given. Patient is in moribund state. No family around. No history was obtained. OBJECTIVE: On examination, temperature is 97 degrees, pulse is 85, blood pressure is stable. Physical exam with no change. DIAGNOSTIC STUDIES: Blood cultures repeated, pending. Yeast infection on the urine. ASSESSMENT AND PLAN: 1. Recurrent fever and infected wound ulcers. IV antibiotics as per Dr. Mccartney. 2. Paroxysmal atrial fibrillation, on amiodarone and Eliquis. 3. Patient is not eating. 4. She is getting some IV Clinimix. 5. Follow up on the blood cultures. 6. End-stage kidney disease, on dialysis. Last one was done Monday. She is due for dialysis on Monday. 7. Prognosis is poor. 8. The patient is full code. Continue present treatment. No further comments. LEVEL OF DOCUMENTATION: 25 minutes. cc: MD Ravin Das MD
[2018-09-09] MEDS: FOLIC ACID PO SCH (21:53)
[2018-09-10] MEDS: DUONEB (A & A) INH SCH ×4 (03:39→20:15)
[2018-09-10] MEDS: NORCO-7.5 PO PRN ×2 (06:07→12:38)
[2018-09-10] MEDS: SANTYL OINT TOP SCH (06:08)
[2018-09-10] MEDS: CLINIMIX E 4.25%-5% SOLUTION 1,000 ML IV SCH (06:08)
--- NOTE | 2018-09-10 07:15 | PROGRESS NOTE ---
DATE: 09/10/2018 SUBJECTIVELY: Ms. Mcfarlane is doing fair. The patient spiked a fever over the weekend. It was 101.5. The patient had repeat blood culture done. Also we did blood work. The patient had large decubitus on the sacrum. Oral intake is poor. I am continuing Clinimix. The patient was complaining of pain. We are OBJECTIVE: Giving her pain medicine. The patient does have chest congestion, cough. No nausea or vomiting. The patient is very vague and a poor historian. Her vital signs noted.Neck: Supple. No JVD. Lungs: Decreased air entry both the bases. CVS: S1 and S2 heard. 2-3/6 systolic murmur at the apex. Abdomen: Soft, scaphoid. Bowel sounds present. Patient does have peripheral vascular disease. Large decubitus on the sacrum and also pressure sore on both the feet. CONTINUITY PERSON: Alert, awake. Answering questions fair. We are going to repeat blood work today. Consideration fever. Large decubitus on the sacrum. End-stage renal disease, on hemodialysis. Mild nutrition. Peripheral arterial disease. ASSESSMENT: I discussed with Dr. Mccartney about her presentation. He is going to evaluate the patient today. I am going to add Mucomyst nebulizer treatment. Get a chest x-ray done, continue the rest of the treatment. Close observation. Overall prognosis fair to guarded. Patient is very sick, multiple medical problems; end-stage renal disease, mild nutrition and large decubitus ulcer and mobility and peripheral vascular disease. Atherosclerosis, making her decubitus heal very slowly. Family is aware. cc: Ravin Torres MD
--- NOTE | 2018-09-10 07:19 | Diag Imaging Result Doc PS360 ---
EXAM: CHEST-PORTABLE HISTORY: pneumonia TECHNIQUE: Portable chest COMPARISON: 09/05/2018 FINDINGS: The lungs are well expanded. There are infiltrates which persist although they are slightly less dense than on the prior study. There is pulmonary edema and mild cardiomegaly. No pleural effusions identified. No change in the double lumen left-sided catheter. No pneumothorax. IMPRESSION: Mild interval improvement. Electronically signed by Yosvany Stock 09/10/2018 7:17 AM
[2018-09-10] MEDS ORDERED: HEPARIN IV PRN (07:27)
[2018-09-10] MEDS ORDERED: TIGHT: 0.2 ML/HR FOR DIALYSIS MISC PRN (07:27)
[2018-09-10] MEDS ORDERED: NS 2,000 ML MISC PRN (07:27)
[2018-09-10 07:33] LABS: HEMATOCRIT 21.5 % (37.0-47.0); HEMOGLOBIN 7.3 g/dL (12.0-16.0); MCH 25.3 PG (27-31); MCV 74.4 FL (81-99); MPV 9.9 FL (7.4-10.4); RBC 2.89 XMIL (4.2-5.4); RDW 19.1 % (11.5-14.5); WBC 25.09 X1000 (4.8-10.8)
[2018-09-10 08:06] LABS: ALBUMIN 1.7 g/dL (3.5-5.0); CALCIUM 7.5 mg/dL (8.8-10.2); CREATININE 2.1 mg/dL (0.5-0.9); PHOSPHORUS 4.2 mg/dL (2.7-4.5); POTASSIUM 5.9 mmol/L (3.5-5.1)
[2018-09-10] MEDS: MUCOMYST 20% INH SCH ×2 (08:10→20:15)
[2018-09-10] MEDS ORDERED: VANCOMYCIN 1 GM/NS 1 GM/250 ML IVPB IV SCH (08:45)
[2018-09-10] MEDS: HEMOCYTE PLUS CAPSULE PO SCH (08:58)
[2018-09-10] MEDS: PLETAL PO SCH ×2 (08:58→21:02)
[2018-09-10] MEDS: ULTRAM PO SCH ×2 (08:58→21:02)
[2018-09-10] MEDS: PROTONIX IV SCH (08:58)
[2018-09-10] MEDS: CORDARONE PO SCH ×2 (08:59→21:02)
[2018-09-10] MEDS: ELIQUIS PO SCH ×2 (08:59→21:02)
--- NOTE | 2018-09-10 12:53 | INFECTIOUS DISEASE PROGRESS NO ---
DATE: 09/10/2018 PRESENT ILLNESS: The patient has infected decubitus ulcers. She also has a bacteremia. She has spiked a fever up to 102 degrees, and now her urine is growing yeast. The latest chest x-ray shows decrease in the patient's infiltrates. MEDICATIONS: The patient is receiving ertapenem after each dialysis. PHYSICAL EXAMINATION: Vital Signs: Earlier temperature was 102 degrees, now it is 99. The patient's pulse is 84, respirations 16, blood pressure 131/60. General: This is an ill- appearing, elderly female. Head, eyes, ears, nose and throat: The patient is able to talk. She does not have any white patches on her tongue. There is no drainage from the nose or ears. Neck: There is no pain when she moves her neck. Lungs: Clear to auscultation. Cardiovascular: Heart rate is regular. Abdomen: Soft and nontender. Thorax: Patient has a tunneled dialysis catheter in the left upper part of the thorax. The site is not swollen or draining. She also in the right groin has a triple lumen catheter. That site also is not swollen or draining. Neurologic: The patient is awake. She did talk in a coherent fashion. She has a large sacral decubitus ulcer that has devitalized tissue. Also, in the right hip and buttock area, there is a large decubitus ulcer that has some beefy red tissue, the there is also tissue that has purulent drainage coming from it. LAB AND X-RAY: Chest x-ray shows decrease in the patient's infiltrates. Her CBC shows a white count of 25,090, hemoglobin 7.3, and platelet count 414,000. Creatinine is 2.1. GFR is 29. Urine is growing yeast. ASSESSMENT AND PLAN: 1. Patient has multiple infected decubitus ulcers and bacteremia. I am going to continue the current drugs. I have added micafungin for the yeast in her urine and also I have ordered vancomycin to be given after each dialysis in case the patient has developed a resistant staphylococcal infection. 2. Comorbidities: The patient is elderly. She appears malnourished. She has end-stage renal disease and she is on hemodialysis. She also is a diabetic and has peripheral vascular disease. cc: MD Ravin Lin MD
--- NOTE | 2018-09-10 14:08 | NEPHROLOGY PROGRESS NOTE ---
DATE: 09/10/2018 SUBJECTIVE: Patient is resting in bed. She opens her eyes to verbal stimuli. States she is not hungry. OBJECTIVE: Vital Signs: Temperature is 98.7 degrees, pulse 84, respiratory rate 13, blood pressure 131/60. Intake 1 L. Output not measured. General: This is a chronically ill-appearing female, resting in bed. No acute distress. HEENT: Normocephalic, atraumatic. Her oral mucosa is dry. Neck: Supple, without JVD. Cardiovascular: Regular rate and rhythm without murmur or gallop. Pulmonary: She has decreased breath sounds. Shallow inspiratory effort. No increased work of breathing. Abdomen: Soft, with positive bowel sounds. : Not inspected. Extremities: Left upper extremity with contracture. She does move the right and squeeze hand to request. Integumentary: Skin is warm and dry. Neurologic: Grossly nonfocal. Lab Data: WBC of 25, hemoglobin 7.3 (8.1). Sodium 139, potassium 5.9, CO2 27, creatinine 2.1. Chest x-ray with some pulmonary edema. ASSESSMENT AND PLAN: 1. Chronic kidney disease 5D. Today is her routine dialysis day. Potassium is 5.9. Therefore, we will run her on a 2 K bath/ultrafiltration to her last dry weight, 3.5 hour treatment. She will continue to receive intradialytic parenteral nutrition during dialysis. 2. Anemia. Transfuse as warranted. 3. Infected wound ulcers. She is on intravenous antibiotics, being followed by infectious disease. 4. Malnutrition. Continue intradialytic parenteral nutrition. Dictated by SARAH Riojas for Gagan Conde MD Face to face encounter, data reviewed, discussed with Magy Bae on 09/10/18. I agree with the above assessment and plan of care. cc: MD Ravin Pimentel MD [facility] CENTERArabella
[2018-09-10] MEDS ORDERED: INVANZ 1 GM/NS 1 GM/50 ML IVPB IV ONE ×2 (15:00→17:00)
[2018-09-10] MEDS: MYCAMINE 100 MG in NS 100 ML IV SCH (16:02)
[2018-09-10] MEDS ORDERED: VANCOMYCIN 1 GM/NS 1 GM/250 ML IVPB IV ONE (18:00)
[2018-09-10] MEDS: FOLIC ACID PO SCH (21:02)
[2018-09-11] MEDS: DUONEB (A & A) INH SCH ×4 (03:50→20:35)
--- NOTE | 2018-09-11 07:28 | PROGRESS NOTE ---
DATE: 09/11/2018 SUBJECTIVE: Ms. Mcfarlane is doing better. She is more alert and awake, answering questions fair. The patient does have loose bowel movement. No high-grade fever or chills. Tolerating feeding well. No nausea or vomiting. No typical chest pain. History part was limited. The patient was complaining of pain in the lower back. I requested nephrology social worker to look for a place who are experts in wound care management, I have not heard from her. OBJECTIVE: Vitals: Vital signs noted. Neck: Supple. No JVD. Lungs: Bilateral good air entry present. CV: S1 and S2 heard. A 2-3/6 systolic murmur at the apex. Abdomen: Soft, globular. Bowel sounds present. Extremities: Evidence of peripheral arterial disease of both lower limbs. Pressure sore on the sacrum. REBRANDER: Alert, awake, answering questions fair. ASSESSMENT: 1. Sepsis. Repeat blood culture was no growth. 2. [place] UTI. The patient was started on micafungin. Appreciate Dr. Mccartney' help managing this patient. 3. End-stage renal disease, on hemodialysis. 4. Atrial fibrillation. 5. Malnutrition. PLAN: Continue current treatment. I am going to recheck CBC. The patient does have anemia of chronic disease; if hemoglobin is low, I am going to transfuse her. Plan is to discharge the patient to a longterm tomorrow. Discharge medications discussed with ID specialist. We will continue hemodialysis. Overall prognosis is fair to guarded. I am going to check stool for C. difficile toxin. Her chest x-ray done yesterday did show mild interval improvement. cc: Ravin Torres MD
[2018-09-11 08:25] LABS: BASO# 0.02 X1000 (0.0-0.2); BASO% 0.1 % (0.0-0.8); HEMATOCRIT 21.6 % (37.0-47.0); HEMOGLOBIN 7.3 g/dL (12.0-16.0); IMM GRAN# 0.14 X1000 (0.0-0.04); IMM GRAN% 0.6 % (0.0-0.5); LYMPH# 2.48 X1000 (1.2-3.4); LYMPH% 10.4 % (20.5-51.1); MCHC 33.8 g/dL (33-37); MPV 10.3 FL (7.4-10.4); NEUT# 20.03 X1000 (1.4-6.5); NEUT% 83.9 % (42.2-75.2); PLT 472 X1000 (130-400); RBC 2.92 XMIL (4.2-5.4); WBC 23.87 X1000 (4.8-10.8)
[2018-09-11] MEDS: MUCOMYST 20% INH SCH ×2 (08:26→20:35)
[2018-09-11 08:57] LABS: ANISOCYTOSIS 1+; BANDS 2 % (0-1); HYPOCHROM 3+; LYMPHS 8 % (21-51); MICROCYTOSIS 2+; MONO 2 % (1-9); POIKILOCYTOSIS 1+; SEGS 88 % (42-75); TARGET CELLS 2+
[2018-09-11] MEDS: ULTRAM PO SCH ×2 (09:00→21:24)
[2018-09-11] MEDS: PROTONIX IV SCH (09:00)
[2018-09-11] MEDS: SODIUM CHLORIDE 0.9% INJ SCH (09:00)
[2018-09-11] MEDS: CORDARONE PO SCH ×2 (09:00→20:52)
[2018-09-11] MEDS: PLETAL PO SCH ×2 (09:00→20:51)
[2018-09-11] MEDS: HEMOCYTE PLUS CAPSULE PO SCH (09:00)
[2018-09-11] MEDS: ELIQUIS PO SCH ×2 (09:00→20:52)
[2018-09-11] MEDS: SANTYL OINT TOP SCH (09:01)
--- NOTE | 2018-09-11 09:43 | INFECTIOUS DISEASE PROGRESS NO ---
DATE: 09/11/2018 SUBJECTIVE: The patient has decubitus ulcers infected with E coli and Providencia. She also has a Providencia bacteremia and a fungal urinary tract infection and also possible pneumonia. The patient today started having very loose stool and there is a possibility she has Clostridium difficile diarrhea. MEDICATIONS: The patient gets both vancomycin and ertapenem after each dialysis. This is the 4th day of treatment with both those agents. The patient also is receiving micafungin for her fungal urinary tract infection. PHYSICAL EXAMINATION: Vital Signs: Temperature is 98.7 degrees, pulse 75, respirations 11, blood pressure 100/46. General: This is an ill-appearing elderly female. She does not seem to be in any acute distress. Head/eyes/ears/nose/throat: Her eyes are open. She tracks with them. There is no drainage coming from the nose or ears. She does not have any white coating of her tongue. Neck: There is no pain when the patient moves her head. Thorax: The patient has a tunneled dialysis catheter in the left upper part of the chest. The site is not swollen or draining. Cardiac: Heart rate is regular. Abdomen: Soft and nontender. Neurologic: The patient is awake. She occasionally says a few words. I did not get her to move her extremities on request from me. Pelvic: The patient has a large decubitus over the sacral area, which is being packed. She also has other ulcers on the back and on the buttocks also. LAB AND X-RAY: Chest x-ray showed improvement in the patient's infiltrates. Thus far this morning there is no new laboratory study. ASSESSMENT AND PLAN: The patient has multiple infected decubitus ulcers, bacteremia, fungal urinary tract infection, and yeast urinary tract infections and chest x-ray with improving infiltrates and this may be due to pneumonia. My plan is to continue the current antibiotics. I have called Dr. Conde and asked him if he would be able to order ertapenem and vancomycin after each dialysis and he graciously said he will try to get that taken care of. I am going to write for micafungin to be given in the detention where the patient is going. COMORBIDITIES: The patient is elderly. She has multiple decubitus ulcers. She has recurrent urinary tract infections. She has renal failure and is on dialysis. The patient's comorbidities include the fact she is elderly and malnourished. She has end-stage renal disease and is on hemodialysis and finally the patient is a diabetic and she has peripheral vascular disease. cc: MD Ravin Lin MD MTDD
--- NOTE | 2018-09-11 12:34 | NEPHROLOGY PROGRESS NOTE ---
DATE: 09/11/2018 SUBJECTIVE: She is about the same. She still has sacral pain but no other complaints. OBJECTIVE: Vital Signs: Blood pressure 112/52, heart rate 76, respiration 11, afebrile. General: Chronically ill, thin, in no distress. Skin: Warm and dry. Conjunctivae are pink. Neck: Neck veins are not visible. Heart: Regular. No gallops. Lungs: Equal. No crackles. Abdomen: Soft. Extremities: Have no edema, clubbing, or cyanosis. IMPRESSION AND PLAN: Chronic kidney disease 5D. Her next planned dialysis treatment will be tomorrow. Electrolytes and acid-base are in target. She did have mild hyperkalemia and hyponatremia yesterday but this preceded dialysis. Her outpatient antibiotics have been arranged. cc: MD aRvin Pimentel MD
[2018-09-11] MEDS: MYCAMINE 100 MG in NS 100 ML IV SCH (17:02)
[2018-09-11] MEDS: CLINIMIX E 4.25%-5% SOLUTION 1,000 ML IV SCH (17:09)
[2018-09-11] MEDS ORDERED: FLAGYL PO SCH (20:00)
[2018-09-11] MEDS: FOLIC ACID PO SCH (20:52)
[2018-09-12] MEDS: DUONEB (A & A) INH SCH ×4 (03:44→21:28)
[2018-09-12] MEDS ORDERED: HEPARIN IV PRN (06:41)
[2018-09-12] MEDS ORDERED: TIGHT: 0.2 ML/HR FOR DIALYSIS MISC PRN (06:41)
[2018-09-12] MEDS ORDERED: NS 2,000 ML MISC PRN (06:41)
--- NOTE | 2018-09-12 06:44 | GENERAL SURGERY PROGRESS NOTE ---
DATE: 09/12/2018 Reviewed wound, looks essentially the same. Still has slough in it. The wound goes all the way to the sacrum itself. At this point, continue local wound care. She would be a poor surgical candidate for any aggressive debridement in the operating room. cc: MD Ravin Canada MD
--- NOTE | 2018-09-12 07:43 | PROGRESS NOTE ---
DATE: 09/12/2018 SUBJECTIVE: Ms. Mcfarlane is doing better. She is more alert and awake. Complaining of her back pain is less. No nausea or vomiting. The patient is having good bowel movement. No chest pain. OBJECTIVE: Vital Signs: Noted. Neck: Supple. No JVD. Lungs: Bilateral good air entry present. CVS: S1 and S2 heard. 2/6 systolic murmur at the apex. Abdomen: Soft, globular. Vague tenderness lower abdomen. No guarding or rigidity. Extremities: No cyanosis, clubbing. No acute DVT, disuse atrophy of lower limbs. Superficial sore on the left foot. DYER AND WASHER: Alert, awake. The patient does have left-sided weakness. The patient does have multiple medical problems. Her hemoglobin is low. Considering her overall health, she will be benefitted from blood transfusions at least 1 unit during dialysis. Sepsis. The patient is on IV antibiotics. Stage IV decubitus on the sacrum, peripheral arterial disease, end-stage renal disease, on hemodialysis. Overall prognosis fair to guarded. The patient had C difficile antigen positive in the stool. I will consider vancomycin p.o. We will encourage oral feeding. Continue Clinimix. I am trying to get her in the place that can she get better wound care. cc: Ravin Torres MD
[2018-09-12] MEDS: MUCOMYST 20% INH SCH ×2 (08:43→21:28)
--- NOTE | 2018-09-12 09:08 | NEPHROLOGY PROGRESS NOTE ---
DATE: 09/12/2018 SUBJECTIVE: She is awake and alert. Denies new complaints today. No nausea, shortness of breath. OBJECTIVE: Vital Signs: Blood pressure 126/60, heart rate 88, respirations 20, afebrile. General: No acute distress. Skin: Warm and dry. HEENT: Conjunctivae are pink. Neck: Neck veins are not visible. Heart: Regular, with systolic murmur present. Lungs: Equal. No crackles or wheezes. Abdomen: Soft, nontender. Bowel sounds present. Extremities: Have trace edema. No clubbing or cyanosis. IMPRESSION AND PLAN: Chronic kidney disease 5D. She will have her routine dialysis today and received 1 unit of packed red blood cells. I will cancel labs except to be collected during dialysis as needed. We will monitor her hemoglobin as an outpatient once weekly. Otherwise, her outpatient antibiotics have been ordered and okay for discharge from my perspective. cc: MD Ravin Pimentel MD
[2018-09-12] MEDS: D50W 250 ML, AMINOSYN 15% 500 ML, LIPOSYN 20% 250 ML MISC SCH ×3 (09:43)
[2018-09-12] MEDS: VANCOCIN PO SCH ×3 (13:44→21:21)
[2018-09-12] MEDS: ULTRAM PO SCH (13:45)
[2018-09-12] MEDS: PLETAL PO SCH ×2 (13:46→21:21)
[2018-09-12] MEDS: CORDARONE PO SCH ×2 (13:47→21:21)
[2018-09-12] MEDS: SODIUM CHLORIDE 0.9% INJ SCH (13:47)
[2018-09-12] MEDS: PROTONIX IV SCH (13:47)
[2018-09-12] MEDS: HEMOCYTE PLUS CAPSULE PO SCH (13:47)
[2018-09-12] MEDS: ELIQUIS PO SCH ×2 (13:47→21:21)
[2018-09-12] MEDS: SANTYL OINT TOP SCH (13:48)
[2018-09-12] MEDS: CLINIMIX E 4.25%-5% SOLUTION 1,000 ML IV SCH ×2 (13:48→18:57)
[2018-09-12] MEDS ORDERED: INVANZ 1 GM/NS 1 GM/50 ML IVPB IV ONE (17:00)
[2018-09-12] MEDS: MYCAMINE 100 MG in NS 100 ML IV SCH (17:06)
[2018-09-12] MEDS ORDERED: VANCOMYCIN 1 GM/NS 1 GM/250 ML IVPB IV ONE (18:00)
--- NOTE | 2018-09-12 19:43 | INFECTIOUS DISEASE PROGRESS NO ---
DATE: 09/12/2018 PRESENT ILLNESS: Ms. Mcfarlane is being treated for infected decubitus ulcers that have grown E. coli and Providencia, and an associated Providencia bacteremia. She also has a funguria and a possible pneumonia. She is also being treated for a positive C. diff antigen with diarrhea. MEDICATIONS: She is receiving vancomycin 125 mg by mouth every 6 hours as well as ertapenem 1 g IV and vancomycin 1 g IV after dialysis. She is also on micafungin 100 mg IV every 24 hours. PHYSICAL EXAMINATION: Vital Signs: Temperature is 98 degrees, pulse rate 93, respiratory rate 18, blood pressure 149/67. O2 saturation is 93% on 2 L nasal cannula. General: This is a chronically ill-appearing, confused, elderly female. She is lying in the bed, currently in no acute distress. HEENT: Atraumatic, normocephalic. Oral mucous membranes are pink and moist. Conjunctivae are pale. Cardiovascular: Heart rate is regular. Respiratory: Lung sounds are clear in the upper lobes with mild rales noted in the bases. Abdomen: Soft and tender on palpation. Bowel sounds are active. Neurologic: She is awake, alert, and conversing more than usual. She is, however, confused to place, time, and situation. LABORATORY AND X-RAY: None available today. ASSESSMENT AND PLAN: Ms. Mcfarlane is being treated for bacteremia, multiple infected decubitus ulcers, a fungal urinary tract infection, and the possibility of pneumonia. We will continue the current antimicrobial regimen, and Dr. Conde has already ordered antibiotics at time of discharge. These plans have been discussed with and recommended by Dr. Mccartney. COMORBIDITIES for Ms. Mcfarlane include that she is elderly with multiple decubitus ulcers, end-stage renal disease with hemodialysis, protein-calorie malnutrition, diabetes mellitus, and peripheral vascular disease. Dictated by SARHA Jeffery for Rojas Mccartney MD cc: MD Ravin Lin MD MTDD
[2018-09-12] MEDS: FOLIC ACID PO SCH (21:21)
[2018-09-13] MEDS: DUONEB (A & A) INH SCH ×2 (03:40→08:07)
[2018-09-13] MEDS: ULTRAM PO SCH ×2 (04:48→08:46)
[2018-09-13] MEDS: VANCOCIN PO SCH ×2 (04:48→08:37)
[2018-09-13 07:40] VITALS: BP 140/66
[2018-09-13 07:43] LABS: BASO# 0.01 X1000 (0.0-0.2); BASO% 0.1 % (0.0-0.8); EOS# 0.04 X1000 (0.0-0.7); EOS% 0.2 % (0.0-10.0); HEMATOCRIT 24.4 % (37.0-47.0); HEMOGLOBIN 8.3 g/dL (12.0-16.0); IMM GRAN# 0.14 X1000 (0.0-0.04); IMM GRAN% 0.8 % (0.0-0.5); LYMPH# 1.57 X1000 (1.2-3.4); LYMPH% 8.7 % (20.5-51.1); MCH 25.6 PG (27-31); MCV 75.3 FL (81-99); MONO# 1.38 X1000 (0.11-0.59); MONO% 7.7 % (1.7-9.3); MPV 9.8 FL (7.4-10.4); NEUT# 14.85 X1000 (1.4-6.5); NEUT% 82.5 % (42.2-75.2); PLT 515 X1000 (130-400); RBC 3.24 XMIL (4.2-5.4); RDW 19.6 % (11.5-14.5); WBC 17.99 X1000 (4.8-10.8)
--- NOTE | 2018-09-13 07:43 | DISCHARGE SUMMARY ---
ADMISSION DATE: 09/01/2018 DISCHARGE DATE: DISCHARGE DIAGNOSES: 1. Gram sepsis. 2. Pneumonia. 3. End-stage renal disease. 4. Malnutrition. 5. Stage IV pressure sore on the sacrum. 6. Ulcer on the left foot. 7. Peripheral arterial disease. 8. Urinary tract infection. 9. C. difficile antigen positive. 10. History of cerebrovascular accident with left-sided weakness. 11. Multiple sclerosis. 12. Gastritis. 13. History of chronic pain. 14. Recurrent urinary tract infection. 15. Diabetes mellitus. 16. Weight loss. HISTORY OF PRESENT ILLNESS: Ms. Mcfarlane is a 67-year-old, patient with multiple medical problems resident of [facility] and [facility]. The patient had multiple hospitalizations for UTI, pneumonia, altered mental status, and cardiopulmonary arrest. Lately, the patient was not doing well. On the day of admission, her blood pressure was low. The patient had nonhealing sacral decubitus. We sent patient to the ER, and found to have leukocytosis. Evaluated by ER physician, and admitted for further care. HOSPITAL COURSE: Patient was given IV hydration gentle because of her renal failure, IV antibiotics, supportive care and symptomatic treatment. The patient had Nephrology consult done. ID consult done with Dr. Mccartney. We also did Surgical consult because of nonhealing ulcer on the sacrum. Her nutritional status was poor. The patient had peripheral arterial disease. The patient was seen by vascular surgeon Dr. Urbina. Considering her overall health, he recommended Pletal. The patient is doing fair. Her ulcer will take a long time to heal. I am planning to send her to long-term care where we can have better wound care. Clinically, patient is doing better more alert and awake answering questions well. No high-grade fever or chills. I treated her with Clinimix IV antibiotics, close observation, pain management and local wound care. DISCHARGE EXAMINATION: Her vital signs noted. Neck is supple. No JVD. Patient is afebrile. Decreased air entry both the bases. CVS: S1 and S2 heard. A 2-3/6 systolic murmur at the apex. Abdomen: Soft, globular. Bowel sounds present. Extremities: No cyanosis or clubbing. No acute DVT. Patient does have disuse atrophy of lower limbs. Superficial ulceration both feet more so on the left. Left sided weakness. 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 LABORATORY: Her blood work done yesterday, WBC count 23.87, hemoglobin 7.3, hematocrit 21.6 and platelet count 472,000. We gave her 1 unit of packed RBC after the blood work. Blood work ordered for today is pending. Her last potassium 5.9, but the patient did have dialysis done after that. Blood culture grew Providencia. Urine culture also grew Providencia and E. coli. Urine culture grew twice fungus that is why the patient is on antifungal treatment. IMPRESSION AND PLAN: I had lengthy discussion with and Dr. Conde about her antibiotics treatment. Dr. Conde is going to give her antibiotics vancomycin and Invanz after dialysis. She will continue antifungal as recommended by Dr. Mccartney. Continue rest of the treatment and supportive care. Wound care. Change position. The patient will need air mattress. Overall discharge condition satisfactory. Overall prognosis is poor. Discharge orders as per separate sheet. cc: Ravin Torres MD
[2018-09-13 08:03] LABS: AGAP 7; ALB/GLOB RATIO 0.5; ALBUMIN 1.8 g/dL (3.5-5.0); ALKALINE PHOSPHATASE 143 U/L (32-104); BUN 23 mg/dL (8-22); CALCIUM 7.7 mg/dL (8.8-10.2); CHLORIDE 100 mmol/L (98-107); COSMO 274; CREATININE 0.9 mg/dL (0.5-0.9); ESTIMATED GFR > 60; GLUCOSE 103 mg/dL (70-104); GOT 66 U/L (10-30); GPT 31 U/L (10-36); POTASSIUM 3.1 mmol/L (3.5-5.1); SODIUM 135 mmol/L (136-145); TCO2 28 mmol/L (25-35); TOTAL BILIRUBIN 0.28 mg/dL (0.20-1.00); TOTAL PROTEIN 5.1 g/dL (6.3-8.3)
[2018-09-13] MEDS: MUCOMYST 20% INH SCH (08:07)
[2018-09-13] MEDS: PROTONIX IV SCH (08:37)
[2018-09-13] MEDS: HEMOCYTE PLUS CAPSULE PO SCH (08:37)
[2018-09-13] MEDS: PLETAL PO SCH (08:37)
[2018-09-13] MEDS: SODIUM CHLORIDE 0.9% INJ SCH (08:37)
[2018-09-13] MEDS: CORDARONE PO SCH (08:37)
[2018-09-13] MEDS: ELIQUIS PO SCH (08:37)
[2018-09-13 08:39] LABS: BANDS 2 % (0-1); LYMPHS 8 % (21-51); MONO 2 % (1-9); SEGS 88 % (42-75)
[2018-09-13] MEDS: SANTYL OINT TOP SCH (08:50)
--- NOTE | 2018-09-13 13:09 | NEPHROLOGY PROGRESS NOTE ---
DATE: 09/13/2018 SUBJECTIVE: She is awake, alert. No complaints today. She still complains of pain in her sacral area. OBJECTIVE: Vital Signs: Blood pressure 140/66, heart rate 73, respirations 20, afebrile. Generally: Frail, elderly woman, no distress. Skin: Warm and dry. Neck: Neck veins are not visible. Heart: Regular. Lungs: Equal. No crackles or wheezes. Abdomen: Soft, nontender. Bowel sounds are present. Extremities: No edema, clubbing or cyanosis. IMPRESSION AND PLAN: Chronic kidney disease 5D. Her next dialysis will be tomorrow. Electrolytes and acid-base and volume status are all on target. cc: MD Ravin Pimentel MD
== END 2018-09-13 13:00 | DRG 853 ==
LOC: SUPCPDRO → ED 13:28 → 3N 20:25
PROVIDERS: ADMIT Internal Medicine; ATTEND Internal Medicine
CPT/HCPCS: 36430; 71010; 71045; 74019; 74020; 80053; 80069; 81001; 82550; 82948; 83605; 83735; 84484; 85025; 85027; 85610; 85730; 86850; 86900; 86901; 86920; 87040; 87070; 87077; 87088; 87186; 87324; 87449; 94640; 94761; A9270; C9113; J0692; J0743; J1335; J1450; J1644; J1956; J2248; J2405; J3370; J7030; J7040; J7050; P9016; S0164; XXXXX